=== PATIENT | male | born 1985 | race Caucasian/White ===

== ENCOUNTER 2021-10-03 08:03 | Outpatient (RCR) | payer OTHER, MEDICAID, MEDICARE, SELFPAY ==
--- NOTE | ~2021-10-03 | XR_ITS ---
EXAMINATION: CR X-RAY FOOT AND ANKLE LEFT CLINICAL INFORMATION: Left ankle and foot pain. COMPARISON: None TECHNIQUE: 3 views of the left foot and ankle were obtained. FINDINGS: The ankle joint and mortise are intact. There is no acute fracture or dislocation. Superficial soft tissue wounds are seen medially adjacent to the tibia. The tarsal bones are normally aligned. Deformity is seen in the distal aspect of the fifth metatarsal with ankylosis of the metatarsophalangeal joint. An adjacent superficial soft tissue wound with moderate soft tissue swelling is seen laterally. The remainder the digits are intact. Generalized mild soft tissue swelling. XR/XR ankle LT min 3V IMPRESSION: 1. Superficial soft tissue wounds in the ankle medially without acute underlying osseous abnormality. 2. Deformity in the distal fifth metatarsal does not appear acute and could be secondary to old fracture or healed osteomyelitis. Overlying soft tissue wound and swelling. Osteomyelitis cannot be excluded. MRI may be needed to better assess for acuity.
--- NOTE | ~2021-10-03 | XR_ITS ---
EXAMINATION: CR X-RAY FOOT AND ANKLE LEFT CLINICAL INFORMATION: Left ankle and foot pain. COMPARISON: None TECHNIQUE: 3 views of the left foot and ankle were obtained. FINDINGS: The ankle joint and mortise are intact. There is no acute fracture or dislocation. Superficial soft tissue wounds are seen medially adjacent to the tibia. The tarsal bones are normally aligned. Deformity is seen in the distal aspect of the fifth metatarsal with ankylosis of the metatarsophalangeal joint. An adjacent superficial soft tissue wound with moderate soft tissue swelling is seen laterally. The remainder the digits are intact. Generalized mild soft tissue swelling. XR/XR foot LT min 3V IMPRESSION: 1. Superficial soft tissue wounds in the ankle medially without acute underlying osseous abnormality. 2. Deformity in the distal fifth metatarsal does not appear acute and could be secondary to old fracture or healed osteomyelitis. Overlying soft tissue wound and swelling. Osteomyelitis cannot be excluded. MRI may be needed to better assess for acuity.
== END 2022-08-26 15:33 | disposition home or self-care (01) ==
LOC: HO.WCC 08:03
PROVIDERS: PCP Nurse Practitioner Family; Referring Provider Nurse Practitioner Family; Visit Provider Surgery
DX: L89.523 Pressure ulcer of left ankle, stage 3 (principal); L97.523 Non-pressure chronic ulcer of other part of left foot with necrosis of muscle; L93.0 Discoid lupus erythematosus; G90.09 Other idiopathic peripheral autonomic neuropathy; M21.6X2 Other acquired deformities of left foot; I73.9 Peripheral vascular disease, unspecified; I10 Essential (primary) hypertension; L90.5 Scar conditions and fibrosis of skin; F17.210 Nicotine dependence, cigarettes, uncomplicated
CPT/HCPCS: 11042; 73610; 73630; 87071; 87077; 87186; 87205; 99213

== ENCOUNTER → 2022-03-11 10:38 | Outpatient (BNVA) | payer OTHER, MEDICAID, SELFPAY | PROVIDERS: PCP Nurse Practitioner Family; Visit Provider Internal Medicine | DX: M86.9 Osteomyelitis, unspecified (principal); L97.529 Non-pressure chronic ulcer of other part of left foot with unspecified severity | CPT/HCPCS: 99202 ==

== ENCOUNTER → 2022-03-25 10:36 | Outpatient (BNVA) | payer OTHER, MEDICAID, SELFPAY | PROVIDERS: PCP Nurse Practitioner Family; Visit Provider Internal Medicine | DX: M86.9 Osteomyelitis, unspecified (principal) | CPT/HCPCS: 99212 ==

== ENCOUNTER 2024-04-04 02:14 | Emergency (ER) | payer MEDICARE, MEDICAID, SELFPAY ==
[2024-04-04 02:18] VITALS: BP 202/128; PULSE 108; RESP 16; TEMP 36.8; O2SAT 98; BMI 20.9
[2024-04-04 03:01] VITALS: BP 158/114; PULSE 88; RESP 17; TEMP 37.1; O2SAT 95
[2024-04-04 03:20] LABS: MANUAL DIFF FLAG NO
[2024-04-04 03:21] LABS: Basophils Percent Auto 0.4 % (0-2); Eosinophils Absolute Auto 0.2 X10*3/uL (0.0-0.4); Eosinophils Percent Auto 3.8 % (0-4); Hemoglobin 12.8 g/dl (14.0-18.0); Lymphocytes Absolute Auto 2.1 X10*3/uL (1.2-4.9); Lymphocytes Percent Auto 43.1 % (20-40); Mean Corpuscular HGB Conc 33.7 g/dl (31.0-36.0); Mean Corpuscular Hemoglobin 29.2 pg (27.0-33.0); Mean Corpuscular Volume 86.8 fL (80.0-98.0); Mean Platelet Volume 8.6 fL (9.4-12.4); Monocytes Absolute Auto 0.5 X10*3/uL (0.1-1.2); Monocytes Percent Auto 9.1 % (2-11); Neutrophils Absolute Auto 2.2 x10*3/uL (2.0-8.3); Neutrophils Percent Auto 43.6 % (45-73); Platelet Count 236 X10*3/uL (160-400); Red Blood Count 4.38 X10*6/uL (4.60-5.80); Red Cell Distribution Width 12.4 % (11.0-16.0); White Blood Count 4.9 X10*3/uL (4.8-10.8)
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
[2024-04-04 03:32] VITALS: BP 158/105
[2024-04-04] MEDS: amLODIPine Besylate 5 MG TABLET PO (03:32)
--- NOTE | 2024-04-04 03:32 | PC.NURSE ---
patient slightly hypertensive, has not been taking amlodipine at home. 5mg Amlodipine given here, aware
[2024-04-04 03:36] LABS: Alanine Aminotransferase 9 U/L (0-40); Albumin Level 4.1 g/dL (3.5-5.0); Alkaline Phosphatase 84 U/L (39-117); Anion Gap 13 (12-20); Aspartate Amino Transferase 15 U/L (5-37); Bilirubin Total 0.2 mg/dL (0.0-1.0); Blood Urea Nitrogen 23 mg/dL (9-16); Calcium 9.2 mg/dL (8.4-10.2); Carbon Dioxide 25 mmol/L (22-29); Chloride 106 mmol/L (96-108); Creatinine Clr Calc Pharmacy 104.1; Estimated Glomerular Filt Rate > 60; Glucose Random 102 mg/dL (60-115); Potassium 3.6 mmol/L (3.3-5.1); Sodium 140 mmol/L (135-145); Total Protein 7.1 g/dL (6.5-8.0)
[2024-04-04 03:41] VITALS: BP 158/105; PULSE 88; RESP 17; TEMP 37.1; O2SAT 95
== END 2024-04-04 03:51 | disposition home or self-care (01) ==
LOC: HO.ED 03:46
PROVIDERS: Emergency Provider Emergency Medicine
DX: S00.91XA Abrasion of unspecified part of head, initial encounter (principal); S00.83XA Contusion of other part of head, initial encounter; R51.9 Headache, unspecified; X58.XXXA Exposure to other specified factors, initial encounter; Y93.89 Activity, other specified; Y92.89 Other specified places as the place of occurrence of the external cause; Y99.8 Other external cause status
CPT/HCPCS: 36415; 80053; 85025; 99283; 99284

== ENCOUNTER 2025-03-01 20:28 | Inpatient (IN) | payer MEDICARE, MEDICAID, SELFPAY ==
--- NOTE | ~2025-03-01 | XR_ITS ---
CLINICAL HISTORY: infection to distal right pointer finger 3 view right 2nd digit Comparison: None Findings: No displaced fracture. No dislocation. No aggressive appearing osseous erosions by radiographs. Mild osteoarthritis includes imaged wrists. Mild relative truncation of the 1st and 4th metacarpals appear old/chronic and likely on a congenital basis. Soft tissue defect and/or blistering suggested of the distal soft tissues of the 2nd digit. Soft tissue swelling nonspecific. No radiopaque retained foreign body. IMPRESSION: 1. No acute fracture or aggressive osseous erosions. 2. Abnormal soft tissues of the likely distal defect of the 2nd digit. This document has been electronically signed by: Luis Foster MD on 03/01/2025 21:31:39
[2025-03-01 20:44] VITALS: BP 169/106; PULSE 113; RESP 17; TEMP 38.3; O2SAT 97; BMI 19.3
--- NOTE | 2025-03-01 20:49 | ED_ITS ---
HPI - General Adult General Chief complaint: Extremity Injury, Lower Stated complaint: rt index finger infection Time Seen by Provider: 03/01/25 21:32 Source: patient Mode of arrival: ambulatory Limitations: no limitations History of Present Illness ED Provider: Dr. Ericka Hicks HPI narrative: Patient comes to the emergency room complaining of right index pain an infection. According to the patient, 3 days ago, he noticed that he had swelling above the fingernail. Patient states that he attempted to drain it with a nail and squeeze the pus out. Patient states that he has done this multiple times. However, it keeps getting feel with pus. Patient states that now the pus is draining on the opposite side of the finger. Patient states that he has been having significant pain and is unable to bend the distal part of his finger now. Patient also complaining of a chronic ulcer on the left ankle. Patient states it has been about 5 years. Patient states that he has not followed up with wound care for more than 2 years. Patient states that he was not aware that he had a fever, on arrival temperature in triage was recorded as 100.9. Patient admits to past medical history of IV drug use, along with history of lupus and vasculitis Related Data Previous Rx's ?Medication ?Instructions ?Recorded levofloxacin 750 mg tablet 750 mg PO DAILY 42 days #42 tabs 03/11/22 Allergies Allergy/AdvReac Type Severity Reaction Status Date / Time Sulfa (Sulfonamide Allergy Unknown Unknown Verified 03/01/25 20:48 Antibiotics) Review of Systems 2 Review of Systems: Constitutional : No Weight loss, No Fever, No Chills, No Night Sweats, No Fatigue, No Malaise ENT/Mouth : No Hearing loss, No Ear Pain, No Nasal Congestion, No Sinus Pain, No Hoarseness, No sore throat, No Rhinorrhea, No Swallowing Difficulty Eyes: No Eye Pain, No Swelling, No Redness, No Foreign Body, No Discharge, No Vision Changes Cardiovascular : No Chest Pain, No SOB, No Dyspnea on Exertion, No Orthopnea, No Edema, No Palpitations Respiratory : No Cough, No Sputum, No Wheezing, No Smoke Exposure, No Dyspnea Gastrointestinal : No Nausea, No Vomiting, No Diarrhea, No Constipation, No abdominal Pain, No Hematochezia, No Melena Genitourinary : no irregular bleeding, No Dysuria, No Urinary Frequency, No Hematuria, No Urinary Incontinence, No Urgency, No Flank Pain, No Urinary Flow Changes, No Hesitancy Musculoskeletal : No joint pain, No Myalgias, No Joint Swelling Skin : Complaining of pus drainage in the dorsal and palmar aspect of the right index finger, complaining of a chronic ulcer on the left ankle Neuro : No Weakness, No Numbness, No Paresthesias, No Loss of Consciousness, No Dizziness, No Headache Psych : No Anxiety/Panic, No Depression, No SI/HI/AH/VH, No Social Issues, Heme/Lymph: No Bruising, No Bleeding,No Lymphadenopathy Endocrine : No Polyuria, No Polydipsia, No Temperature Intolerance [facility] Past Medical History Medical History IV drug user Vasculitis Lupus (systemic lupus erythematosus) Osteomyelitis Social History Social History Substance Use Type: Heroin Physical Exam ED Exam Exam: Appearance: Alert. Oriented X3. No acute distress. Eyes: Pupils equal, round and reactive to light. ENT: Pharynx normal. Neck: Normal inspection. Neck supple. No lymph nodes noted. No crepitus CVS: Normal heart rate and rhythm. Pulses normal. Normal S1 and S2 Respiratory: No respiratory distress. Breath sounds normal. No Wheezing. No rales Abdomen: Soft and nontender. No rigidity. No distention. Skin: Skin warm and dry. See extremities below Extremities: No lower extremity edema. On patient's right index finger, there is a puncture wound to the dorsal aspect, paronychia present, draining pus, there is also a pus on the dorsal aspect of the right index finger, likely there is a fistula. Patient unable to flex the DIP. In the left ankle on the medial aspect, there is a chronic ulcer. See pictures below Neuro: Oriented X 3. No motor deficit. No sensory deficit. Moving all extremities. No slurred speech. CN 2 through 12 grossly intact Psych: calm, cooperative, normal affect Vital Signs: Vital Signs - 24 hr 03/01/25 20:44 03/01/25 21:40 03/01/25 21:54 Temperature 100.9 F H 99.5 F Pulse Rate 113 H 100 Respiratory Rate 17 16 Blood Pressure 169/106 H 161/104 H 161/104 H Pulse Oximetry 97 97 Oxygen Delivery Method Room Air Room Air BMI result Body Mass Index 19.3 Course Course Course Narrative: This is a Rapid Medical Examination (RME) performed by Parisa Sneed PA-C in triage. Full HPI, ROS, assessment and treatment plan per primary provider in the Main ED. Hx: 40 yo M here for eval of swelling/ pain to R second digit upon waking this morning. no recent injury/trauma. attempted to tj the finger himself at home - yellow/white drainage noted. PE/vitals: tachycardic +febirle - tylenol given in triage. hypertensive - not compliant w/ HTN meds x2 days. noted swelling to entire right 2nd digit with noted blister to distal aspect. unable to flex at right 2nd DIP. sausage digit. Plan: labs, lactic, BC, xr Medications Administered Generic Name Dose Route Start Last Admin Trade Name Freq PRN Reason Stop Dose Admin Piperacillin Sod/Tazobactam 50 mls @ 100 mls/hr 03/01/25 21:44 03/01/25 21:53 Sod 3.375 gm/ Sodium Chloride IV 03/01/25 22:13 100 mls/hr ONCE ONE Administration Discontinued Medications Generic Name Dose Route Start Last Admin Trade Name Freq PRN Reason Stop Dose Admin Acetaminophen 975 mg 03/01/25 20:48 03/01/25 20:50 Acetaminophen 325 Mg Tablet PO 03/01/25 20:49 975 mg ONCE ONE Administration Amlodipine Besylate 10 mg 03/01/25 21:44 03/01/25 21:54 Amlodipine Besylate 10 Mg Tablet PO 03/01/25 21:45 10 mg ONCE ONE Administration Protocol Medical Decision Making Medical Decision Making [facility] Narrative: My interpretation of labs, patient's white blood cell count 4.6, no significant chemistry abnormality, lactic acid normal Patient's blood pressure is elevated, given 10 mg of amlodipine Patient is empirically being treated with IV antibiotics, fluids, patient does have a bit of a fever. No hypotension, normal lactic acid. sepsis not suspected I discussed the patient with Dr. Duenas, patient being admitted Patient agrees with plan Differential Diagnosis Differential Diagnoses: The differential diagnosis associated with the presentation includes (Cellulitis, paronychia, fistula, chronic wound, osteomyelitis) Admission/Observation Consideration of admission/observation: Escalation of care including admission/observation considered Consult Healthcare Provider Management of the patient was discussed with: Hospitalist Lab Data [facility] Lab Attestation statement: I reviewed the patient's lab results. 03/01/25 21:08 03/01/25 21:08 Labs: Lab Results 03/01/25 Range/Units 21:08 WBC 4.6 L (4.8-10.8) X10*3/uL RBC 3.87 L (4.60-5.80) X10*6/uL Hgb 10.7 L (14.0-18.0) g/dl Hct 31.7 L (42.0-52.0) % MCV 81.9 (80.0-98.0) fL MCH 27.6 (27.0-33.0) pg MCHC 33.8 (31.0-36.0) g/dl RDW 14.1 (11.0-16.0) % Plt Count 241 (160-400) X10*3/uL MPV 9.0 L (9.4-12.4) fL Immature Gran % (Auto) 0.2 (0.0-0.4) % Neut % (Auto) 66.3 (45-73) % Lymph % (Auto) 25.7 (20-40) % [place] % (Auto) 6.1 (2-11) % Eos % (Auto) 1.5 (0-4) % Baso % (Auto) 0.2 (0-2) % Lymph # (Auto) 1.2 (1.2-4.9) X10*3/uL [place] # (Auto) 0.3 (0.1-1.2) X10*3/uL Eos # (Auto) 0.1 (0.0-0.4) X10*3/uL Baso # (Auto) 0.0 (0.0-0.2) X10*3/uL Abs Immat Gran (auto) 0.01 (0.00-0.03) X10*3/uL Absolute Neuts (auto) 3.0 (2.0-8.3) x10*3/uL Absolute Nucleated RBC 0.000 (0.0-0.012) X10*3/uL Nucleated RBC % (auto) 0.0 (0.0-0.2) /100WBC Sodium 136 (135-145) mmol/L Potassium 3.7 (3.3-5.1) mmol/L Chloride 100 (96-108) mmol/L Carbon Dioxide 26 (22-29) mmol/L Anion Gap 14 (12-20) BUN 19 H (9-16) mg/dL Creatinine 1.19 (0.5-1.4) mg/dL Estim Creat Clear Calc 76.6 Estimated GFR > 60 Random Glucose 93 (60-115) mg/dL Lactic Acid 0.8 (0.5-2.0) mmol/L Calcium 8.5 D (8.4-10.2) mg/dL Total Bilirubin 0.2 (0.0-1.0) mg/dL AST 31 (5-37) U/L ALT 17 (0-40) U/L Alkaline Phosphatase 82 (39-117) U/L Total Protein 7.3 (6.5-8.0) g/dL Albumin 3.7 (3.5-5.0) g/dL Independent Interpretation I performed an independent interpretation of an: Plain X-Ray Radiology Impression Discussion of test interpretation with radiology: I have reviewed the radiologist's reading. Radiologist Impression: No displaced fracture. No dislocation. No aggressive appearing osseous erosions by radiographs. Mild osteoarthritis includes imaged wrists. Mild relative truncation of the 1st and 4th metacarpals appear old/chronic and likely on a congenital basis. Soft tissue defect and/or blistering suggested of the distal soft tissues of the 2nd digit. Soft tissue swelling nonspecific. No radiopaque retained foreign body. IMPRESSION: 1. No acute fracture or aggressive osseous erosions. 2. Abnormal soft tissues of the likely distal defect of the 2nd digit. Critical Care Time Critical Care Time Critical Care Time: Yes Total Critical Care Time: 60 Attestation: I have personally provided critical care time. Time includes review of lab data, radiology results, discussion with consultants, and monitoring for potential decompensation. Intervention performed as documented. Discharge Plan Discharge Clinical Impression: Cellulitis, Chronic wound, Hypertension, At risk for medication noncompliance Patient Disposition: Admitted As Inpatient Print Language: Irish
--- NOTE | 2025-03-01 20:51 | PC.NURSE ---
pt medicated in triage d/t fever. effectiveness pending. possible sepsis - chargeback analyst, Neda, notified/aware.
[2025-03-01 21:15] LABS: MANUAL DIFF FLAG NO
[2025-03-01 21:18] LABS: Hematocrit 31.7 % (42.0-52.0); Hemoglobin 10.7 g/dl (14.0-18.0); Imm Gran Abs Auto 0.01 X10*3/uL (0.00-0.03); Imm Gran Pct Auto 0.2 % (0.0-0.4); Lymphocytes Absolute Auto 1.2 X10*3/uL (1.2-4.9); Mean Corpuscular HGB Conc 33.8 g/dl (31.0-36.0); Mean Corpuscular Hemoglobin 27.6 pg (27.0-33.0); Mean Corpuscular Volume 81.9 fL (80.0-98.0); NRBC Abs Auto 0.000 X10*3/uL (0.0-0.012); NRBC Pct Auto 0.0 /100WBC (0.0-0.2); Platelet Count 241 X10*3/uL (160-400); Red Blood Count 3.87 X10*6/uL (4.60-5.80); White Blood Count 4.6 X10*3/uL (4.8-10.8)
[2025-03-01 21:37] LABS: Alanine Aminotransferase 17 U/L (0-40); Albumin Level 3.7 g/dL (3.5-5.0); Alkaline Phosphatase 82 U/L (39-117); Anion Gap 14 (12-20); Aspartate Amino Transferase 31 U/L (5-37); Blood Urea Nitrogen 19 mg/dL (9-16); Calcium 8.5 mg/dL (8.4-10.2); Carbon Dioxide 26 mmol/L (22-29); Chloride 100 mmol/L (96-108); Creatinine Clr Calc Pharmacy 76.6; Estimated Glomerular Filt Rate > 60; Potassium 3.7 mmol/L (3.3-5.1); Sodium 136 mmol/L (135-145); Total Protein 7.3 g/dL (6.5-8.0)
[2025-03-01 21:40] VITALS: BP 161/104; PULSE 100; RESP 16; TEMP 37.5; O2SAT 97
--- NOTE | 2025-03-01 21:43 | PC.NURSE ---
pt comes in from waiting room, finger wound that started without injury, red and swollen, pt punctured it a day ago to see if he could relieve some pressure and puss, reports blood and yellow discharge. Pain increased, swelling and redness after this. pain with touch to finger. provider Dr Hicks at bedside.
[2025-03-01 21:54] VITALS: BP 161/104
--- NOTE | 2025-03-01 21:58 | PC.NURSE ---
pt medicated per MAR.
--- NOTE | 2025-03-01 22:00 | PC.NURSE ---
tylenol given in triage, duplicate dose ordered and not given.
[2025-03-01 22:09] VITALS: BP 145/101; PULSE 92; RESP 16; O2SAT 97
--- NOTE | 2025-03-01 22:09 | PM.IMHP ---
History of Present Illness Date of Service: 03/01/25 Chief Complaint: finger infection This has a 40-year-old male with pertinent history of SLE, vasculitis, hypertension, polysubstance IV drug use disorder who is noncompliant with home medications presents to the emergency department for concerns of finger infection. Patient states he noticed infection below the right index finger nail 3 days prior to presentation. No inciting factor. There was associated swelling, redness and warmth. Patient tried to self drain the infection multiple times using a needle. He subsequently noticed purulent foul-smelling drainage from the volar surface of the finger. Patient has significant pain and is unable to flex the distal part of his right index finger due to pain. Has associated fever. No chills, nausea, vomiting, chest pain, palpitations, shortness of breath, abdominal pain, changes in urinary or bowel habits. Patient admits that he has not been compliant with his home prescription medications as he is in the middle of moving. Denies recent IV drug use. In the emergency department, patient was found to be septic and given empiric IV antibiotics. Review of Systems Constitutional: Constitutional: Reports fever(s) Cardiovascular: Cardiovascular: Reports no additional cardiovascular complaints Respiratory: Respiratory: Reports no additional respiratory complaints Gastrointestinal: Gastrointestinal: Reports no additional gastrointestinal complaints Genitourinary: Genitourinary: Reports no additional male genitourinary complaints Musculoskeletal: Musculoskeletal: Reports arthralgias and Reports joint swelling [facility] Medical History IV drug user Vasculitis Lupus (systemic lupus erythematosus) Osteomyelitis Social History Patient Tobacco Use Status: Current everyday Tobacco user Substance Use Type: Heroin Meds Allergies Allergy/AdvReac Type Severity Reaction Status Date / Time Sulfa (Sulfonamide Allergy Unknown Unknown Verified 03/01/25 20:48 Antibiotics) Active Medications: Current Medications Vancomycin HCl 1,500 mg/ (Sodium Chloride) 500 mls @ 333.333 mls/hr IV ONCE ONE Stop: 03/01/25 23:13 Piperacillin Sod/Tazobactam (Sod 3.375 gm/ Sodium Chloride) 50 mls @ 100 mls/hr IV ONCE ONE Stop: 03/01/25 22:13 Last Admin: 03/01/25 21:53 Dose: 100 mls/hr Sodium Chloride (Ns) 1,000 mls @ 999 mls/hr IVCONT .Q1H1M ONE Stop: 03/01/25 23:03 Physical Exam Vital Signs and Narrative: Vital Signs: Last Vital Signs Temp 99.5 F 03/01/25 21:40 Pulse 100 03/01/25 21:40 Resp 16 03/01/25 21:40 BP 161/104 H 03/01/25 21:54 Pulse Ox 97 03/01/25 21:40 O2 Del Method Room Air 03/01/25 21:40 BMI result Body Mass Index 19.3 Const: Other: Middle-aged male lying in bed in no distress Neck supple, no JVD Regular rate and rhythm, S1-S2 heard Regular breath sounds bilaterally, no wheezing or crackles appreciated Abdomen soft nontender, no guarding, no rigidity Patient is awake, alert and oriented to self, place, time and person ; no focal motor deficit Psych: Normal mood Right index finger with puncture wound draining pus and surrounding erythema, warmth and swelling on the volar aspect, also paronychia seen ; unable to flex DIP due to pain (as pictured below) Chronic ulcer in the medial aspect of left ankle without drainage (as pictured below) Skin: Other: Results Labs 03/01/25 21:08 03/01/25 21:08 Labs: Laboratory Results - last 24 hr 03/01/25 21:08 MCV 81.9 MCH 27.6 MCHC 33.8 RDW 14.1 Plt Count 241 MPV 9.0 L Immature Gran % (Auto) 0.2 Neut % (Auto) 66.3 Lymph % (Auto) 25.7 [place] % (Auto) 6.1 Eos % (Auto) 1.5 Baso % (Auto) 0.2 Lymph # (Auto) 1.2 [place] # (Auto) 0.3 Eos # (Auto) 0.1 Baso # (Auto) 0.0 Abs Immat Gran (auto) 0.01 Absolute Neuts (auto) 3.0 Absolute Nucleated RBC 0.000 Nucleated RBC % (auto) 0.0 Anion Gap 14 Estim Creat Clear Calc 76.6 Estimated GFR > 60 Random Glucose 93 Lactic Acid 0.8 Calcium 8.5 D Total Bilirubin 0.2 AST 31 ALT 17 Alkaline Phosphatase 82 Total Protein 7.3 Albumin 3.7 Assessment and Plan (1) Cellulitis: Status: Acute Plan This has a 40-year-old male with pertinent history of SLE, vasculitis, hypertension who is noncompliant with home medications presents to the emergency department for concerns of finger infection. #. Sepsis due right index finger cellulitis with paronychia and ?underlying abscess: Resuscitated with IV crystalloids. Will admit patient with empiric IV antibiotics. Lactic acid and blood culture obtained. Consulted Orthopedic surgery, appreciate assistance. Obtaining CT to delineate underlying anatomy #. Normocytic anemia: Hemoglobin above transfusion threshold #. Hypertension: Patient is not compliant with home antihypertensives. Resume once med rec is complete #. SLE: Not compliant with home prescription medications #. Chronic venous ulcer: Wound care Med rec pending DVT: Defer Lovenox until orthopedic evaluation Full code Admit as inpatient and will require two night minimum hospital stay for IV antibiotics (as above), which is not possible in a lesser acute setting. Specialist consult pending Quality Stroke Does the patient have a stroke diagnosis?: No VTE Prior VTE?: No VTE Risk Level:: Medical - low VTE Device Contraindication: Treatment Not Indicated VTE Drug Contraindication: Treatment Not Indicated
--- NOTE | 2025-03-01 22:30 | PC.NURSE ---
pt medicated per MAR.
--- NOTE | 2025-03-01 23:31 | PC.NURSE ---
pt admits to hx of IV drug use, [facility] states safety check not mandated as pt isn't showing signs of intoxication or probable cause for a search , dev technical mgr aware.
--- NOTE | 2025-03-01 23:36 | PC.NURSE ---
pt ambulated to bathroom, infusion stopped at 2330, resumed at 4
[2025-03-02] VITALS (10 sets, daily range): BP systolic 119–178; BP diastolic 68–112; PULSE 76–88; RESP 14–18; TEMP 36.7–37.7; O2SAT 96–98
[2025-03-02 05:13] LABS: MANUAL DIFF FLAG NO
[2025-03-02 05:15] LABS: Hematocrit 33.8 % (42.0-52.0); Hemoglobin 10.8 g/dl (14.0-18.0); Imm Gran Abs Auto 0.00 X10*3/uL (0.00-0.03); Imm Gran Pct Auto 0.0 % (0.0-0.4); Lymphocytes Absolute Auto 1.5 X10*3/uL (1.2-4.9); Mean Corpuscular HGB Conc 32.0 g/dl (31.0-36.0); Mean Corpuscular Hemoglobin 26.9 pg (27.0-33.0); Mean Corpuscular Volume 84.1 fL (80.0-98.0); NRBC Abs Auto 0.000 X10*3/uL (0.0-0.012); NRBC Pct Auto 0.0 /100WBC (0.0-0.2); Platelet Count 240 X10*3/uL (160-400); Red Blood Count 4.02 X10*6/uL (4.60-5.80); White Blood Count 3.6 X10*3/uL (4.8-10.8)
[2025-03-02 05:38] LABS: Anion Gap 9 (12-20); Blood Urea Nitrogen 14 mg/dL (9-16); Calcium 8.3 mg/dL (8.4-10.2); Carbon Dioxide 26 mmol/L (22-29); Chloride 107 mmol/L (96-108); Creatinine Clr Calc Pharmacy 96.0; Estimated Glomerular Filt Rate > 60; Potassium 3.2 mmol/L (3.3-5.1); Sodium 139 mmol/L (135-145)
--- NOTE | 2025-03-02 07:54 | P.CONOP_ITS ---
History of Present Illness HPI Consult date: 03/02/25 Chief complaint: rt index finger infection Narrative: Patient is a 40-year-old male with past medical history significant for IV drug use, vasculitis, SLE, hypertension noncompliant with meds and osteomyelitis who presents to the hospital for a an approximately 3 day history of redness and swelling in the tip of the right index finger Patient reports that this redness and swelling started approximately 3 days ago, began at the site of the nail Patient reports that this redness and swelling has moved into the pad of the right index finger Patient reports that multiple times he has attempted to tj this with a needle at home Patient does report that there are 2 sites that are actively draining, and then he feels his pain has improved since this started Patient reports significant discomfort at the tip of the right index finger, particularly in the pad Reports Limited range of motion of the DIP joint No other acute complaints or concerns at this time Of note, patient does have a significant chronic wound of the left ankle Review of Systems 2 Review of Systems: Yes all other systems are reviewed and are negative PMFSH Past Medical History Medical History IV drug user Vasculitis Lupus (systemic lupus erythematosus) Osteomyelitis Social History Social History Patient Tobacco Use Status: Current everyday Tobacco user Smoked in Last 30 Days: Yes Use of substances other than those prescribed or required for medical reasons: Yes Substance Use Type: Heroin Advance Directives: No Advance Directives Information Provided: Yes Do you have a plan to hurt others: No Plan Meds Allergies Allergy/AdvReac Type Severity Reaction Status Date / Time Sulfa (Sulfonamide Allergy Unknown Unknown Verified 03/01/25 20:48 Antibiotics) Active Medications: Current Medications Acetaminophen (Acetaminophen 325 Mg Tablet) 650 mg PO Q6H PRN PRN Reason: Pain, Mild 1-3,fever,headache Calcium Carbonate (Calcium Carbonate 750 Mg Tab.Chew) 750 mg PO Q4H PRN PRN Reason: Heartburn Vancomycin HCl 1,000 mg/ (Sodium Chloride) 270 mls @ 270 mls/hr IV Q12H [facility] Lidocaine HCl 8.11 ml/Epinephrine 0.08 mg/ Sodium Bicarbonate 0.405 meq/ IV Miscellaneous Supplies 9 mls @ 0 mls/hr INFILTRATI ONCE ONE Stop: 03/02/25 07:54 Magnesium Hydroxide (Milk Of Magnesia 30 Ml Oral.Susp) 30 ml PO DAILY PRN PRN Reason: Constipation Melatonin (Melatonin 3 Mg Tablet) 6 mg PO BEDTIME PRN PRN Reason: Insomnia Ondansetron HCl (Ondansetron Hcl 4 Mg/2 Ml Vial) 4 mg IVPUSH Q8H PRN PRN Reason: Nausea and Vomiting Pharmacy Consult (Consult Rx Vancomycin Dosing) 1 each MISCELLANE DAILY PRN PRN Reason: Consult order Sodium Chloride (0.9 % Sodium Chloride Flush 3 Ml Syringe) [facility] Last Admin: 03/02/25 00:11 Dose: Not Given Home Medications ?Medication ?Instructions ?Recorded ?Confirmed ?Last Taken ?Type buprenorphine 300 mg/1.5 mL 300 mg subcut QMONTH 03/02 Unknown History solution,exten.rel.subcutaneous syringe (Sublocade) buprenorphine 8 mg-naloxone 2 mg 1 film sublingual SHARIFA LY 03/02/25 Unknown History sublingual film clonidine HCl 0.1 mg tablet 0.1 mg PO TID PRN Anxiety 03/02/25 Unknown History gabapentin 600 mg tablet 600 mg PO TID 03/02/25 Unkn own History Physical Exam 2 Vital Signs: Vital Signs: Last Vital Signs Temp 99.5 F 03/02/25 06:40 Pulse 88 03/02/25 06:40 Resp 16 03/02/25 06:40 BP 159/112 H 03/02/25 06:40 Pulse Ox 98 03/02/25 06:40 O2 Del Method Room Air 03/02/25 06:40 BMI result Body Mass Index 19.3 Extrem: Other: Patient is alert, oriented, and in no acute distress. Neuro: Normal sensation of the tips of all digits of the right hand at this time Vascular: Cap refill brisk Pain: Significant tenderness to palpation of the distal aspect of the right index finger Pain with attempted range of motion of the DIP joint of the right index finger ROM: Limited range of motion noted of the DIP joint of the right index finger secondary to pain Patient is able to flex and extend all other digits of the right hand fully and without difficulty General: Erythema noted diffusely throughout the distal phalanx of the right index finger There is noted to be some slight purulent drainage of 2 puncture sites of the distal aspect of the right index finger, 1 adjacent to the nail and 1 on the pad of the finger Psych: Appears grossly normal Affect normal Attitude cooperative Results Labs 03/02/25 04:55 03/02/25 04:55 Labs: Abnormal lab results 03/01/25 03/02/25 Range/Units 21:08 04:55 WBC 4.6 L 3.6 L (4.8-10.8) X10*3/uL RBC 3.87 L 4.02 L (4.60-5.80) X10*6/uL Hgb 10.7 L 10.8 L (14.0-18.0) g/dl Hct 31.7 L 33.8 L (42.0-52.0) % MCH 26.9 L (27.0-33.0) pg MPV 9.0 L 9.1 L (9.4-12.4) fL Neut % (Auto) 43.3 L (45-73) % Lymph % (Auto) 41.4 H (20-40) % Eos % (Auto) 4.7 H (0-4) % Absolute Neuts (auto) 1.6 L (2.0-8.3) x10*3/uL Potassium 3.2 L (3.3-5.1) mmol/L Anion Gap 9 L (12-20) BUN 19 H (9-16) mg/dL Calcium 8.3 L (8.4-10.2) mg/dL H & H 03/01/25 03/02/25 Range/Units 21:08 04:55 Hgb 10.7 L 10.8 L (14.0-18.0) g/dl Hct 31.7 L 33.8 L (42.0-52.0) % All other labs normal. Assessment and Plan (1) Paronychia of right index finger: Status: Acute (2) Felon of finger of right hand: Status: Acute Plan 1. Paronychia and felon of right index finger Date of onset approximately 3 days ago I educated the patient about the condition. I discussed both operative and nonoperative treatment options. The patient would like to proceed with surgery. The risks and benefits of operative treatment were discussed with the patient and the patient wishes to proceed with surgery. These risks include, but are not limited to, risk of damage to blood vessels, nerves, tendons, infection, recurrence, incomplete relief of preoperative symptoms, persistent pain, possible need for further surgery, and the risks associated with regional blocks and/or anesthesia. Plan is to take the patient to the operating room on 03/02/2025 for the following procedures: 1. I and D of right index finger under local anesthesia Patient does not need to be NPO, as procedure will be done under local Will require IV antibiotics after surgery, we will be transferred to the floor accordingly Continue with all other recommendations per the ED and medicine Procedures Date of Service Date of Service: 03/02/25
--- NOTE | 2025-03-02 08:39 | PHA.MEDREC ---
Pharmacy Consult ? Medication Reconciliation Pharmacy has completed the medication reconciliation. Spoke to patient to confirm medication list. Per patient, his last dose of sublocade was on around 01/29/25, next dose is scheduled for 03/06/25. He is taking gabapentin but hasn't taken it in about a week due to running out of med and hasn't picked up the refill from pharmacy yet. He said he is taking suboxone films but only as needed due to being on sublocade (doesn't remember last dose).
[2025-03-02] MEDS: BUPivacaine MPF 0.5 % 10 ML VIAL SUBCUT (09:29)
--- NOTE | 2025-03-02 09:42 | MHC.SHP ---
Pre-Procedural Eval Section A - 24 Hr Update-Section A only Date of Service: 03/02/25 The patient is an INPATIENT: Yes Changes since office visit: No Cold of Flu in the past 2 weeks, No New Medical Problems, No Changes in Medication and No Patient answered all questions The patient has been examined within 24 hours of the surgical procedure. The History & Physical has been completed within 30 days and I have reviewed it.: Yes Section B - Complete if H&P > 30 days Chief Complaint: rt index finger infection Allergies: Allergies Allergy/AdvReac Type Severity Reaction Status Date / Time Sulfa (Sulfonamide Allergy Unknown Rash Verified 03/02/25 08:39 Antibiotics) Exam Exam Comment: Patient is seen by me in preop hold. He has a right index finger paronychia and felon. No tenderness in the flexor tendon sheath proximal to the PIP joint. Minimal tenderness to palpation proximal to the D IP joint Good active flexion and extension of the digit at the MCP and PIP joints Plan I have reviewed the history and physical and performed a pertinent physical examination on my patient. No changes have occurred unless specified. Assessment and plan: 1. Right index finger paronychia and felon I educated the patient about this condition we discussed operative and non operative treatment options. I am recommending surgery in the patient agrees. The risks and benefits of operative treatment were discussed with the patient and the patient wishes to proceed with surgery. These risks include, but are not limited to risk of damage to blood vessels, nerves, tendons, infection, recurrence, incomplete relief of preoperative symptoms, persistent pain, possible need for further surgery and the risks associated with regional blocks and anesthesia. The plan is to take the patient to the operating room today for the following procedures: 1. Right index finger I and D 2. [ ] All of the preoperative paperwork including the consent was filled out today. All the patient's questions were answered. Time Spent With Patient Time: Total time managing care of this patient today ____ minutes.
--- NOTE | 2025-03-02 09:44 | W.PM.OPN ---
Operative Note Operative Note Date of Service: 03/02/25 Narrative: Operative Note Preop diagnosis: 1. Right index finger felon 2. Right index finger paronychial infection Postop diagnosis: same Procedure: 1. Right index finger I and D of felon and paronychia infection Surgeon: Gypsy Campos MD Blueprint Machine Operator: Guerrero CABALLERO Anesthesia: digital block using 1% lidocaine with epinephrine Findings: Creamy yellow Purulence coming from beneath the radial eponychial fold and within the pad. EBL: Less than 5 mL Tourniquet time: None Specimens: Cultures taken of purulence Complications: None Disposition: Brought to recovery room in stable condition Plan: Admit back to the floor for IV antibiotics. Check cultures and adjust antibiotics accordingly Follow-up for 7-10 days for wound check and suture removal and to check pathology Indications: The patient is 40 years old, with an IV drug use history and a right index finger felon and paronychial infection . The risks and benefits of operative treatment including but not limited to risk of damage to blood vessels, nerves, tendons, infection, persistent pain, persistent symptoms, recurrence or possible need for additional surgery were discussed with the patient and the patient wishes to proceed with surgery. Procedure: Once consent was obtained a digital block was performed in the preop area using a combination of 0.5% plain Marcaine. The patient was then brought back to the operating suite and placed on the operative table in supine position. The right upper extremity was prepped and draped in a standard surgical fashion. Once assured that we had a good block, it took a [place] elevator and passed it under the radial eponychial fold. We had some creamy yellow purulence in this area. I then took a 15. Blade and made a 8 mm incision extending from the wound that the patient made at the tip of the finger proximally at the apex of the abscess. The incision was made through the skin into the subcutaneous tissue. I then took some iris scissors and opened up the septic in the pad of the finger down to the distal phalanx. There was a significant amount of creamy yellow purulence in the pad of the finger. This was all expressed. I then copiously irrigated both wounds with normal saline using a 10 mL syringe and an Angiocath. Once satisfied with our I&D the wound was copiously irrigated with normal saline and hemostasis was obtained with a brief period of local pressure. No sutures were placed, and I placed a sterile dressing. The patient appears to have tolerated the procedure well and with no complications. All digits were well vascularized at the conclusion of the case.
--- NOTE | 2025-03-02 09:54 | PC.NURSE ---
called pharmacy for potassium that was just recently ordered by [facility] hospitalists. patient off unto for procedure under local sedation. potassium to be brought down for or or pacu nurse to hang the first dose.
[2025-03-02] MEDS: Potassium Chloride/H20 10 MEQ/100 ML PIGGYBACK 100 MEQ IV ×2 (10:33→11:38)
[2025-03-02] MEDS: 0.9 % Sodium Chloride Flush 3 ML SYRINGE IVFLUSH ×2 (16:57→20:19)
--- NOTE | 2025-03-02 17:14 | HO.PM.IMPN ---
Subjective Subjective Date of Service: 03/02/25 Interval History: Sepsis due right index finger cellulitis Review of Systems Patient had mild finger pain, went for surgery today. Review of Systems: Yes all other systems are reviewed and are negative Physical Exam Exam: Exam: Appearance: Alert.? Oriented X3.? . cvs: rrr, [id number] . res: clear to auscultation ,no rhonchii or wheezing abd: no rebound or guarding ,nt, bs present. skin:(per ortho documentation)Erythema noted diffusely throughout the distal phalanx of the right index finger There is noted to be some slight purulent drainage of 2 puncture sites of the distal aspect of the right index finger. ext pulses present , no cyanosis . neuro: axo3 , nonfocal. Vital Signs: Vital Signs: Last Vital Signs Temp 98.0 F 03/02/25 14:57 Pulse 76 03/02/25 14:57 Resp 18 03/02/25 14:57 BP 145/96 H 03/02/25 15:16 Pulse Ox 98 03/02/25 14:57 O2 Del Method Room Air 03/02/25 14:57 BMI result Body Mass Index 19.3 Objective Data Active Medications Acetaminophen (Acetaminophen 325 Mg Tablet) 650 mg PO Q6H PRN PRN Reason: Pain, Mild 1-3,fever,headache Buprenorphine/Naloxone (Buprenorphine/Naloxone 8/2 Mg Film) 1 film SUBLINGUAL DAILY [facility] Last Admin: 03/02/25 11:45 Dose: Not Given Documented By: KENNETH Non-Admin Reason: Patient Refused Calcium Carbonate (Calcium Carbonate 750 Mg Tab.Chew) 750 mg PO Q4H PRN PRN Reason: Heartburn Gabapentin (Gabapentin 600 Mg Tablet) 600 mg PO TID [facility] Last Admin: 03/02/25 15:06 Dose: Not Given Documented By: CHERELLE Non-Admin Reason: Patient Asleep Vancomycin HCl 1,000 mg/ (Sodium Chloride) 270 mls @ 270 mls/hr IV Q12H [facility] Last Infusion: 03/02/25 15:04 Dose: Infused Documented By: CHERELLE Magnesium Hydroxide (Milk Of Magnesia 30 Ml Oral.Susp) 30 ml PO DAILY PRN PRN Reason: Constipation Melatonin (Melatonin 3 Mg Tablet) 6 mg PO BEDTIME PRN PRN Reason: Insomnia Non-Formulary Medication (Buprenorphine [Sublocade]) 300 mg SUBCUT Q30D [facility] Ondansetron HCl (Ondansetron Hcl 4 Mg/2 Ml Vial) 4 mg IVPUSH Q8H PRN PRN Reason: Nausea and Vomiting Pharmacy Consult (Consult Rx Vancomycin Dosing) 1 each MISCELLANE DAILY PRN PRN Reason: Consult order Sodium Chloride (0.9 % Sodium Chloride Flush 3 Ml Syringe) 3 ml IVFLUSH QSHIFT [facility] Last Admin: 03/02/25 16:57 Dose: 3 ml Documented By: CHERELLE Labs 03/02/25 04:55 03/02/25 04:55 Labs: Laboratory Results - last 24 hr 03/01/25 03/02/25 21:08 04:55 MCV 81.9 84.1 MCH 27.6 26.9 L MCHC 33.8 32.0 RDW 14.1 14.0 Plt Count 241 240 MPV 9.0 L 9.1 L Immature Gran % (Auto) 0.2 0.0 Neut % (Auto) 66.3 43.3 L Lymph % (Auto) 25.7 41.4 H Howell % (Auto) 6.1 10.3 Eos % (Auto) 1.5 4.7 H Baso % (Auto) 0.2 0.3 Lymph # (Auto) 1.2 1.5 Howell # (Auto) 0.3 0.4 Eos # (Auto) 0.1 0.2 Baso # (Auto) 0.0 0.0 Abs Immat Gran (auto) 0.01 0.00 Absolute Neuts (auto) 3.0 1.6 L Absolute Nucleated RBC 0.000 0.000 Nucleated RBC % (auto) 0.0 0.0 Anion Gap 14 9 L Estim Creat Clear Calc 76.6 96.0 Estimated GFR > 60 > 60 Random Glucose 93 98 Lactic Acid 0.8 Calcium 8.5 D 8.3 L Total Bilirubin 0.2 AST 31 ALT 17 Alkaline Phosphatase 82 Total Protein 7.3 Albumin 3.7 Microbiology Microbiology Results: Microbiology 03/02/25 10:11 Gram Stain - Final Finger Right Index Assessment and Plan (1) Paronychia of right index finger: Status: Acute Assessment and Plan: 40-year-old male with pertinent history of SLE, vasculitis, hypertension who is noncompliant with home medications presents to the emergency department for concerns of finger infection. Sepsis due right index finger cellulitis with paronychia and ?underlying abscess: Consulted Orthopedic surgery-s/p Right index finger I and D of felon and paronychia infection,continue Resuscitated with IV crystalloids, empiric IV antibiotics. Lactic acid normal and blood culture pending . ID eval. Normocytic anemia: Hemoglobin above transfusion threshold Hypertension: Patient is not compliant with home antihypertensives. Resume once med rec is complete SLE: Not compliant with home prescription medications Chronic venous ulcer: Wound care DVT: Defer Lovenox until orthopedic evaluation Full code Admit as inpatient and will require two night minimum hospital stay for IV antibiotics (as above), which is not possible in a lesser acute setting. Specialist consult pendin Quality Stroke Does the patient have a stroke diagnosis?: No VTE Prior VTE?: No VTE Risk Level:: Medical - low VTE Device Contraindication: Treatment Not Indicated VTE Drug Contraindication: Treatment Not Indicated
--- NOTE | 2025-03-02 18:09 | HO.WOUND ---
Wound Consult: Initial 40yr old?male admitted to [facility] [place] on 03/01/25- See progress notes and H&P for detailed history.? Wound consult placed for Left medial chronic ankle wound.? Patient agreeable to assessment and photo documentation.? Patient is not able to provide meaningful details about his wound at this time. He is very sl;eepy from his OR procedure earlier in the day. Left medial ankle Etiology: ??Chronic Ulceration Measurements: 4cm x 3cm x 0.3cm Wound Bed: dry red wound bed Drainage / Odor: None noted Edges: ? epibole Whit wound: scar tissue noted deformed ankle?- No Induration, Fluctuance or Warmth noted Pain: denies reports neuropathy Goals of Treatment: ? Durafiber Q3 days for moist wound healing Recommendations: Provide adequate and supplemental nutrition.? When applicable maintain blood glucose levels per Providers order. Left Medial Ankle - Cleanse with NS moist gauze, Pat dry.? Apply barrier to periwound, apply Durafiber AG to wound bed, cover with dry gauze, ABd pad and wrap or foam dressing. Change every 3 days. Re-consult wound care Nurse for wound deterioration or wound changes.
--- NOTE | 2025-03-02 21:50 | HE.PHANOTE ---
DELIO Changed dose to 1250mg Q12H as indication is sepsis. Targeting new trough of 17, AUC 581. Next trough to be drawn 03/03 @2100.
[2025-03-03 03:42] VITALS: BP 137/93; PULSE 88; RESP 18; TEMP 37.1; O2SAT 97
[2025-03-03 06:09] LABS: Creatinine Clr Calc Pharmacy 114.0; Estimated Glomerular Filt Rate > 60
[2025-03-03 07:22] VITALS: BP 146/102; PULSE 75; RESP 16; TEMP 36.5; O2SAT 98
[2025-03-03 07:53] LABS: Anion Gap 10 (12-20); Blood Urea Nitrogen 8 mg/dL (9-16); Calcium 8.6 mg/dL (8.4-10.2); Carbon Dioxide 27 mmol/L (22-29); Chloride 105 mmol/L (96-108); Potassium 3.4 mmol/L (3.3-5.1); Sodium 139 mmol/L (135-145)
[2025-03-03] MEDS: 0.9 % Sodium Chloride Flush 3 ML SYRINGE IVFLUSH ×2 (08:39→15:16)
--- NOTE | 2025-03-03 10:01 | PM.PNORT ---
Subjective Subjective Date of Service: 03/03/25 Interval history: Postop day 1 status post I and D of felon of right index finger Patient resting comfortably in bed this morning Reports significant improvement in pain since prior to surgery No acute events overnight No other acute complaints or concerns at this time Physical Exam Vital Signs: Vital Signs: Last Vital Signs Temp 97.7 F 03/03/25 07:22 Pulse 75 03/03/25 07:22 Resp 16 03/03/25 07:22 BP 146/102 H 03/03/25 07:22 Pulse Ox 98 03/03/25 07:22 O2 Del Method Room Air 03/03/25 07:22 BMI result Body Mass Index 19.3 Extrem: Other: Patient is alert, oriented, and in no acute distress. Neuro: Normal sensation of the tips of all digits of the right hand at this time Vascular: Cap refill brisk Pain: Mild tenderness to palpation of the distal aspect of the right index finger Pain with attempted range of motion of the DIP joint of the right index finger ROM: Limited range of motion noted of the DIP joint of the right index finger secondary to pain Patient is able to flex and extend all other digits of the right hand fully and without difficulty General: Erythema and edema have both improved significantly from prior to surgical intervention, erythema is very mild at this time There is noted to be some slight purulent drainage of incision site over pad of right index finger Psych: Appears grossly normal Affect normal Attitude cooperative Procedures Date of Service Date of Service: 03/03/25 Progress Note: A&P Assessment and plan (1) Cellulitis: Status: Acute (2) Paronychia of right index finger: Status: Acute (3) Felon of finger of right hand: Status: Acute Plan 1. Status post I and D of paronychia and felon of right index finger DOS 03/02/2025 Patient appears to be recovering well postoperatively Patient is educated that once the pus has been drained from the abscess site, the best thing to do for treatment of any ongoing infection is antibiotics Daily dressing changes Dressing changed today without issue If patient continues to experience improvement, can consider discharge on oral antibiotics Continue with all other recommendations per Medicine Time Spent With Patient Time: Total time managing care of this patient today ____ minutes. Quality Stroke Does the patient have a stroke diagnosis?: No VTE Prior VTE?: No VTE Risk Level:: Medical - low VTE Device Contraindication: Treatment Not Indicated VTE Drug Contraindication: Treatment Not Indicated
[2025-03-03 12:19] VITALS: BMI 19.3
[2025-03-03 12:23] VITALS: BP 148/100; PULSE 77; RESP 19; TEMP 36.6; O2SAT 98
--- NOTE | 2025-03-03 12:26 | MHC.CLN ---
NUTRITION DIET=REGULAR. PATIENT IS UNDERWEIGHT FOR HEIGHT WITH WEIGHT 80% OF IBW. APPEARS THIN BUT NOT MALNOURISHED. ADDING ENSURE BID TO IMPROVE NUTRITIONAL INTAKE. SUPPLEMENT PROVIDES 700 KCALS, 60 G PROTEIN. FOLLOW FOR PO INTAKE. SEE CLINICAL NUTRITION ASSESSMENT 03/03/25.
--- NOTE | 2025-03-03 12:50 | W.PM.IDCN ---
History of Present Illness Data of Consult Service Date: 03/03/25 Requesting physician: Madison Mauro Primary Care Provider: Unknown Physician HPI Reason for consult: right index finger paronychia He presents with pain and purulent discharge from right index finger over last five days. He denies fever but has temperature of 100.9 on presentation and heart rate 100. PMFSH Past Medical History Medical History (Updated 03/03/25 @ 12:54 by Sonia Kong MD) Sepsis IV drug user Vasculitis Lupus (systemic lupus erythematosus) Osteomyelitis Family History Family history: reviewed and not pertinent Surgical History Surgical History Hx of foot surgery Social History Social History Household Members: None Housing: Apartment Patient Tobacco Use Status: Current everyday Tobacco user Tobacco use type: Cigarette Substance Use Type: Heroin Meds Allergies Allergy/AdvReac Type Severity Reaction Status Date / Time Sulfa (Sulfonamide Allergy Unknown Rash Verified 03/02/25 08:39 Antibiotics) Active Medications: Current Medications Acetaminophen (Acetaminophen 325 Mg Tablet) 975 mg PO Q6H PRN PRN Reason: Pain, Mild 1-3,fever,headache Buprenorphine/Naloxone (Buprenorphine/Naloxone 8/2 Mg Film) 1 film SUBLINGUAL DAILY [facility] Last Admin: 03/03/25 08:38 Dose: Not Given Calcium Carbonate (Calcium Carbonate 750 Mg Tab.Chew) 750 mg PO Q4H PRN PRN Reason: Heartburn Gabapentin (Gabapentin 600 Mg Tablet) 600 mg PO TID [facility] Last Admin: 03/03/25 08:38 Dose: 600 mg Vancomycin HCl 1,250 mg/ (Sodium Chloride) 250 mls @ 166.667 mls/hr IV Q12H [facility] Last Infusion: 03/03/25 12:41 Dose: Infused Magnesium Hydroxide (Milk Of Magnesia 30 Ml Oral.Susp) 30 ml PO DAILY PRN PRN Reason: Constipation Melatonin (Melatonin 3 Mg Tablet) 6 mg PO BEDTIME PRN PRN Reason: Insomnia Non-Formulary Medication (Buprenorphine [Sublocade]) 300 mg SUBCUT Q30D [facility] Ondansetron HCl (Ondansetron Hcl 4 Mg/2 Ml Vial) 4 mg IVPUSH Q8H PRN PRN Reason: Nausea and Vomiting Pharmacy Consult (Consult Rx Vancomycin Dosing) 1 each MISCELLANE DAILY PRN PRN Reason: Consult order Sodium Chloride (0.9 % Sodium Chloride Flush 3 Ml Syringe) 3 ml IVFLUSH [facility] Last Admin: 03/03/25 08:39 Dose: 3 ml Home Medications ?Medication ?Instructions ?Recorded ?Confirmed ?Last Taken ?Type buprenorphine 300 mg/1.5 mL 300 mg subcut QMONTH 03/02/25 03/02/25 01/29/25 History solution,exten.rel.subcutaneous syringe (Sublocade) buprenorphine 8 mg-naloxone 2 mg 1 film sublingual DAILY 03/02/25 03/02/25 Unknown History sublingual film gabapentin 600 mg tablet 600 mg PO TID 03/02/25 03/02/25 02/23/25 History Physical Exam Vital Signs: Vital Signs: Last Vital Signs Temp 97.9 F 03/03/25 12:23 Pulse 77 03/03/25 12:23 Resp 19 03/03/25 12:23 BP 148/100 H 03/03/25 12:23 Pulse Ox 98 03/03/25 12:23 O2 Del Method Room Air 03/03/25 12:23 BMI result Body Mass Index 19.3 Const: General: cooperative HEENT: Head: Yes normal to inspection Face and sinus: Yes normal facial exam Mouth: Normal oral and palatal mucosa present Teeth and gingiva: dentition normal Eyes: General: appearance normal, both eyes and all related structures Pupils: Equal, round and reactive pupils present Resp: Effort & Inspection: normal respiratory effort Cardio: Rate: regular rate Rhythm: regular rhythm GI: Palpation (GI): Soft to palpation and nontender : General: Yes no CVA tenderness Back/Spine/Pelvis: Back: no CVA tenderness Skin: General skin exam: no rashes or lesions noted Neuro: General: moves all extremities Cranial nerves: Yes Equal, round and reactive pupils present Extrem: Other: wrapped finger/hand General: Yes normal to inspection Psych: Appearance: grossly normal Results Labs 03/02/25 04:55 03/03/25 05:30 Labs: BMP 03/03/25 05:30 Sodium 139 Potassium 3.4 Chloride 105 Carbon Dioxide 27 BUN 8 L Creatinine 0.80 Calcium 8.6 Microbiology Microbiology Results: Microbiology 03/02/25 10:11 Finger Right Index Gram Stain - Final 03/02/25 10:11 Finger Right Index Routine Culture - Preliminary Streptococcus pyogenes (Grp A) 03/01/25 21:08 Blood - Venous Blood Culture - Preliminary No growth after 24 hours. 03/01/25 21:08 Blood - Venous Blood Culture - Preliminary No growth after 24 hours. Assessment and Plan (1) Paronychia of right index finger: Status: Acute (2) Sepsis: Status: Acute Plan He has resolving cellulitis and no organism found. Would give po Doxycycline for 14 days and follow with Hand
--- NOTE | 2025-03-03 12:55 | PM.EVENT ---
Event Note Date of Service: 03/03/25 Event Note: Group A strep found so would give po Amoxicillin 500 mg tid instead of Doxycycline or Clindamycin 450 mg tid for 10 days, no chewing nails as often this is oral organism Time Spent With Patient Time: Total time managing care of this patient today ____ minutes.
--- NOTE | 2025-03-03 13:41 | MHC.CM.PN ---
Addendum entered by Lilian Read 03/04/25 08:04: PT DISCHARGED AFTER CM HOURS, HOME SELF CARE Original Note: PT REPORTS HE LIVES WITH HIS S/O AND THEY HAVE BEEN STAYING IN [place] HE IS INDEPENDENT, HAS NO DME AND NO SERVICES HE HAS A PCP AT [facility] IN [place] HE DECLINES A HCP DCP: RETURN TO [place] [facility]IA [facility] VS PVTA
[2025-03-03 15:35] VITALS: BP 140/85; PULSE 77; RESP 17; TEMP 36.9; O2SAT 99
--- NOTE | 2025-03-03 16:41 | P.PNIM_ITS ---
Subjective Subjective Date of Service: 03/03/25 Interval History: Sepsis due right index finger cellulitis Review of Systems Patient had mild finger pain, went for surgery today. Review of Systems: Yes all other systems are reviewed and are negative Physical Exam 2 Exam: Exam: Appearance: Alert.? Oriented X3.? . cvs: rrr, [id number] . res: clear to auscultation ,no rhonchii or wheezing abd: no rebound or guarding ,nt, bs present. skin:(per ortho documentation)Erythema noted diffusely throughout the distal phalanx of the right index finger There is noted to be some slight purulent drainage of 2 puncture sites of the distal aspect of the right index finger. ext pulses present , no cyanosis . neuro: axo3 , nonfocal. Vital Signs: Vital Signs: Last Vital Signs Temp 98.4 F 03/03/25 15:35 Pulse 77 03/03/25 15:35 Resp 17 03/03/25 15:35 BP 140/85 H 03/03/25 15:35 Pulse Ox 99 03/03/25 15:35 O2 Del Method Room Air 03/03/25 15:35 BMI result Body Mass Index 19.3 Objective Data Active Medications Acetaminophen (Acetaminophen 325 Mg Tablet) 975 mg PO Q6H PRN PRN Reason: Pain, Mild 1-3,fever,headache Buprenorphine/Naloxone (Buprenorphine/Naloxone 8/2 Mg Film) 1 film SUBLINGUAL DAILY [facility] Last Admin: 03/03/25 08:38 Dose: Not Given Documented By: JOVITA Non-Admin Reason: Patient Refused Calcium Carbonate (Calcium Carbonate 750 Mg Tab.Chew) 750 mg PO Q4H PRN PRN Reason: Heartburn Gabapentin (Gabapentin 600 Mg Tablet) 600 mg PO TID [facility] Last Admin: 03/03/25 14:09 Dose: 600 mg Documented By: JOVITA Vancomycin HCl 1,250 mg/ (Sodium Chloride) 250 mls @ 166.667 mls/hr IV Q12H [facility] Last Infusion: 03/03/25 12:41 Dose: Infused Documented By: JOVITA Magnesium Hydroxide (Milk Of Magnesia 30 Ml Oral.Susp) 30 ml PO DAILY PRN PRN Reason: Constipation Melatonin (Melatonin 3 Mg Tablet) 6 mg PO BEDTIME PRN PRN Reason: Insomnia Non-Formulary Medication (Buprenorphine [Sublocade]) 300 mg SUBCUT Q30D [facility] Ondansetron HCl (Ondansetron Hcl 4 Mg/2 Ml Vial) 4 mg IVPUSH Q8H PRN PRN Reason: Nausea and Vomiting Pharmacy Consult (Consult Rx Vancomycin Dosing) 1 each MISCELLANE DAILY PRN PRN Reason: Consult order Sodium Chloride (0.9 % Sodium Chloride Flush 3 Ml Syringe) 3 ml IVFLUSH QSHIFT [facility] Last Admin: 03/03/25 15:16 Dose: 3 ml Documented By: MELISSA Labs 03/02/25 04:55 03/03/25 05:30 Labs: Laboratory Results - last 24 hr 03/02/25 03/03/25 20:56 05:30 Hold Purple Top SEE NOTE Anion Gap 10 L Estim Creat Clear Calc 114.0 Estimated GFR > 60 Random Glucose 103 Calcium 8.6 Random Vancomycin 10.8 L Microbiology Microbiology Results: Microbiology 03/02/25 10:11 Gram Stain - Final Finger Right Index Routine Culture - Preliminary Streptococcus pyogenes (Grp A) 03/01/25 21:08 Blood Culture - Preliminary Blood - Venous No growth after 24 hours. 03/01/25 21:08 Blood Culture - Preliminary Blood - Venous No growth after 24 hours. Assessment and Plan (1) Paronychia of right index finger: Status: Acute Assessment and Plan: 40-year-old male with pertinent history of SLE, vasculitis, hypertension who is noncompliant with home medications presents to the emergency department for concerns of finger infection. Sepsis due right index finger cellulitis with paronychia and ?underlying abscess: Consulted Orthopedic surgery-s/p Right index finger I and D of felon and paronychia infection,continue Resuscitated with IV crystalloids, empiric IV antibiotics. Lactic acid normal and blood culture pending . ID eval. Normocytic anemia: Hemoglobin above transfusion threshold Hypertension: Patient is not compliant with home antihypertensives. Resume once med rec is complete SLE: Not compliant with home prescription medications Chronic venous ulcer: Wound care DVT: Defer Lovenox until orthopedic evaluation Full code Admit as inpatient and will require two night minimum hospital stay for IV antibiotics (as above), which is not possible in a lesser acute setting. Specialist consult pendin Quality Stroke Does the patient have a stroke diagnosis?: No VTE Prior VTE?: No VTE Risk Level:: Medical - low VTE Device Contraindication: Treatment Not Indicated VTE Drug Contraindication: Treatment Not Indicated
--- NOTE | 2025-03-03 17:02 | PC.NURSE ---
Pt getting dressed and states I have to leave. I have to get back to my things Dr Mauro notified and will come talk to pt.
--- NOTE | 2025-03-03 17:11 | PM.DS ---
DS: Providers Provider Date of Service: 03/03/25 Date of admission: 03/01/25 22:08 Date of discharge: 03/03/25 Primary care physician: Unknown Physician Consults: 03/01/25 23:26 Consult to Orthopedics [place]ine [place] [facility] Reason for consultation: finger infection 03/02/25 15:07 Consult to Wound Care Routine Reason for consultation: chronic left ankle ulcer 03/02/25 15:34 Consult to Infectious Diseases Routine Consulting [place] [facility] Reason for consultation: right index finger cellulitis with paronychia and ?underlying abscess Attending physician on discharge: Madison Mauro Discharging clinician: Madison Mauro DS: Diagnosis Discharge Diagnosis (1) Paronychia of right index finger: Status: Acute DS: Summary Hospital Course Hospital Course: HPI:40-year-old male with pertinent history of SLE, vasculitis, hypertension, polysubstance IV drug use disorder who is noncompliant with home medications presents to the emergency department for concerns of finger infection. Patient states he noticed infection below the right index finger nail 3 days prior to presentation. No inciting factor. There was associated swelling, redness and warmth. Patient tried to self drain the infection multiple times using a needle. He subsequently noticed purulent foul-smelling drainage from the volar surface of the finger. Patient has significant pain and is unable to flex the distal part of his right index finger due to pain. Has associated fever. No chills, nausea, vomiting, chest pain, palpitations, shortness of breath, abdominal pain, changes in urinary or bowel habits. Patient admits that he has not been compliant with his home prescription medications as he is in the middle of moving. Denies recent IV drug use. In the emergency department, patient was found to be septic and given empiric IV antibiotics. hospital course: 40-year-old male with pertinent history of SLE, vasculitis, hypertension who is noncompliant with home medications presents to the emergency department for concerns of finger infection. Sepsis due right index finger cellulitis with paronychia and ?underlying abscess: Consulted Orthopedic surgery-s/p Right index finger I and D of felon and paronychia infection,continue Resuscitated with IV crystalloids, empiric IV antibiotics. Lactic acid normal and blood culture negative @ 24 hrs , finger cultures pending . ID eval-rec for complete augmentin 500 mg po tidx10 days . Normocytic anemia: Hemoglobin above transfusion threshold elevated bp: patient noncomplaint with meds , currently wants to try in lifestyle modification, also monitor blood pressure out patiently and he says he takes amlodipine but dose he does not know, added amlodipine 2.5 mg daily for now until he sees his PCP in [facility]. SLE: Not compliant with home prescription medications Chronic venous ulcer: Wound care rec:Provide adequate and supplemental nutrition.? When applicable maintain blood glucose levels per Providers order. Left Medial Ankle - Cleanse with NS moist gauze, Pat dry.? Apply barrier to periwound, apply Durafiber AG to wound bed, cover with dry gauze, ABd pad and wrap or foam dressing. Change every 3 days. plan: complete augmentin 500 mg po tidx10 days. amlodipine 2.5 po qd. Wound care as above- for leg wound and index finger . follow up with ortho outpatient. Above management discussed with the patient detail length he understand and in agreement with the above plan, time spent 45 minute. Time Attestation Total time managing care of this patient today: 45 mintues. Discharge Coordination Time (in mins): 45min Quality: Safe Use of Opioids Does Pt have an Active Cancer Diagnosis on the Problem List?: No Quality: Stroke Does the patient have a stroke diagnosis?: No Physical Exam Exam: Exam: Appearance: Alert.? Oriented X3.? . cvs: rrr, [id number] . res: clear to auscultation ,no rhonchii or wheezing abd: no rebound or guarding ,nt, bs present. skin:(per ortho documentation)Erythema /pain -improving leg wound: please see wound care note for pic-clean. ext pulses present , no cyanosis . neuro: axo3 , nonfocal. Vital Signs: Vital Signs: Last Vital Signs Temp 98.4 F 03/03/25 15:35 Pulse 77 03/03/25 15:35 Resp 17 03/03/25 15:35 BP 140/85 H 03/03/25 15:35 Pulse Ox 99 03/03/25 15:35 O2 Del Method Room Air 03/03/25 15:35 BMI result Body Mass Index 19.3 DS: Data Data Completed and Pending Labs on day of discharge: Laboratory Results - last 24 hr 03/02/25 03/03/25 20:56 05:30 Hold Purple Top SEE NOTE Sodium 139 Potassium 3.4 Chloride 105 Carbon Dioxide 27 Anion Gap 10 L BUN 8 L Creatinine 0.80 Estim Creat Clear Calc 114.0 Estimated GFR > 60 Random Glucose 103 Calcium 8.6 Random Vancomycin 10.8 L Preliminary micro results at discharge 03/02/25 10:11 Routine Culture - Preliminary Finger Right Index Streptococcus pyogenes (Grp A) 03/01/25 21:08 Blood Culture - Preliminary Blood - Venous No growth after 24 hours. 03/01/25 21:08 Blood Culture - Preliminary Blood - Venous No growth after 24 hours. Imaging Chest x-ray: Radiologist's impression: xray hand; 1. No acute fracture or aggressive osseous erosions. 2. Abnormal soft tissues of the likely distal defect of the 2nd digit. Discharge Plan Discharge Anticipated Discharge Date/Time: 03/03/25 17:04 Patient Disposition: Home, Self-Care Discharge Diagnosis: cellulitis /paronychia index finger Referrals: Guerrero Stanley PA [Physician Clinical Coder, Hand Surgery] - 1 Week Physician,Lali Freire [Primary Care Provider, Medical] - 1 Week Discharge Medications: New amoxicillin-pot clavulanate 500-125 mg Tablet 1 tab PO Q8H Qty: 30 0RF amlodipine 2.5 mg tablet 2.5 mg PO DAILY Qty: 30 0RF Continued gabapentin 600 mg tablet 600 mg PO TID buprenorphine-naloxone 8-2 mg film 1 film sublingual DAILY Sublocade 300 mg/1.5 mL solution, extended rel syringe 300 mg SUBCUT QMONTH Discharge Orders: Discharge Order (Routine); Ordered 03/03/25 Ordered By: Madison Mauro Diet: Advance to usual diet Activity on Discharge: As tolerated Stand Alone Forms: Patient Portal Discharge page Print Language: Prydeinig Activity Restrictions/Additional Instructions: Provide adequate and supplemental nutrition.? When applicable maintain blood glucose levels per Providers order. Left Medial Ankle - Cleanse with NS moist gauze, Pat dry.? Apply barrier to periwound, apply Durafiber AG to wound bed, cover with dry gauze, ABd pad and wrap or foam dressing. Change every 3 days. Care Plan Goals: complete augmentin 500 mg po tidx10 days. amlodipine 2.5 po qd. follow up with ortho outpatient. Health Concerns: Patient seems to be improved, complete antibiotics as above. Follow up with ortho outpatient, also patient was advised for dressing change patient currently does not want to stay more. Plan of Treatment: As above. Assessment: As above. Discharge Date/Time: 03/03/25 18:08
--- NOTE | 2025-03-03 18:01 | PC.NURSE ---
Dr Mauro in to see pt. Discharge instructions reviewed with pt. Instructions for dressing changes reviewed however pt seems preoccupied and anxious to leave but verbalized understanding. Po antibiotic given to pt prior to discharge per MD. Dressing supplies sent home with pt per MD instructions. Pt instructed to poultry picker antibiotic prescription at pharmacy and to followup with PCP and orthopedic MD. Verbalized understanding
== END 2025-03-03 18:08 | disposition home or self-care (01) | DRG 872 ==
LOC: HO.ED 22:08 → HO.EDOVER 22:22 → HO.S3 03-02 14:29
PROVIDERS: Orthopaedic Surgery; Physician Assistant Medical; Physician Assistant Surgical; Admitting Provider Student in an Organized Health Care Education/Training Program; Emergency Provider Emergency Medicine; Visit Provider Internal Medicine
DX: A41.9 Sepsis, unspecified organism (principal); F11.20 Opioid dependence, uncomplicated; L97.329 Non-pressure chronic ulcer of left ankle with unspecified severity; L02.511 Cutaneous abscess of right hand; F17.210 Nicotine dependence, cigarettes, uncomplicated; Z71.6 Tobacco abuse counseling; M32.9 Systemic lupus erythematosus, unspecified; I10 Essential (primary) hypertension; L03.011 Cellulitis of right finger; I87.2 Venous insufficiency (chronic) (peripheral); B95.0 Streptococcus, group A, as the cause of diseases classified elsewhere; D64.9 Anemia, unspecified; Z91.148 Patient's other noncompliance with medication regimen for other reason; Z79.899 Other long term (current) drug therapy
CPT/HCPCS: 36415; 73140; 80048; 80053; 80202; 82565; 83605; 85025; 87040; 87070; 87077; 87147; 87186; 87205; 99285; J0665; J2543; J3374; J3480

== ENCOUNTER → 2025-03-01 20:47 | Outpatient (BNV) | payer MEDICARE, MEDICAID, SELFPAY | PROVIDERS: Emergency Provider Emergency Medicine; Visit Provider Radiology Neuroradiology | DX: L02.611 Cutaneous abscess of right foot (principal) | CPT/HCPCS: 73140 ==

== ENCOUNTER → 2025-03-01 22:08 | Outpatient (BNV) | payer MEDICARE, MEDICAID, SELFPAY | PROVIDERS: Admitting Provider Student in an Organized Health Care Education/Training Program; Emergency Provider Emergency Medicine | DX: L03.011 Cellulitis of right finger (principal); L03.90 Cellulitis, unspecified | CPT/HCPCS: 99024 ==

== ENCOUNTER → 2025-03-01 22:08 | Outpatient (BNV) | payer MEDICARE, MEDICAID, SELFPAY | PROVIDERS: Admitting Provider Student in an Organized Health Care Education/Training Program; Emergency Provider Emergency Medicine; Visit Provider Student in an Organized Health Care Education/Training Program | DX: L03.011 Cellulitis of right finger (principal); L03.90 Cellulitis, unspecified | CPT/HCPCS: 99222; 99232; 99239; 99499 ==

== ENCOUNTER → 2025-03-01 22:08 | Outpatient (BNV) | payer MEDICARE, MEDICAID, SELFPAY | PROVIDERS: Admitting Provider Student in an Organized Health Care Education/Training Program; Emergency Provider Emergency Medicine; Visit Provider Internal Medicine | DX: A41.9 Sepsis, unspecified organism (principal); L03.011 Cellulitis of right finger | CPT/HCPCS: 99232; 99499 ==

== ENCOUNTER 2025-06-18 17:33 | Emergency (ER) | payer MEDICARE, MEDICAID, SELFPAY ==
--- OUTSIDE RECORDS SUMMARY | 2025-06-16 23:59 | XMS_ITS | Continuity of Care Document ---
Author Organization [facility] Address [address] [place] [address]- Care Team Providers Care Research Dietitian Name Role Phone Geeta Chang MD Primary Care Phys[id number]): [facility]25 [facility] Adult [address] [place] [address]- Encounter Diagnosis Administrative encounter(Discharge Diagnosis) - 06/07/25 Attending Physician: Geeta Chang MD Encounter Type: Office Visit Allergies, Adverse Reactions, Alerts Substance Criticality Severity Reaction Reaction Severity Status doxycycline Active sulfADIAZINE rash Active Other Environmental Allergy Perennial allergic rhinitis with seasonal variation Active Functional Status Functional Status Assessment Assessment Assessment Component Result Effecti ve Date Disability status [CUBS] I'm Thriving - no identified disability 06/09/25 Because of a physica l, mental, or emotional condition, do you have difficulty doing errands alone such as visiting a physician's office or shopping No 06/09/25 Are you deaf, or do you have serious difficulty hearing No 06/09/25 Do you have difficul ty dressing or bathing No 06/09/25 Do you need any rafat tional assistance or accommodations during your visit No 06/09/25 Do you have serious difficulty walking or climbing stairs No 06/09/25 Difficulty Reading O r Writing No 06/09/25 Because of a physica l, mental, or emotional condition, do you have serious difficulty concentrating, remembering, or making decisions No 06/09/25 Difficulty communica ting in usual language No 06/09/25 Are you blind, or do you have serious difficulty seeing, even when wearing glasses No 06/09/25 Immunizations Given and Recorded Vaccine Date Status Refusal Reason influenza virus vaccine, inactivated 05/06/21 Jean rded tetanus/diphtheria/pertussis, acel(Tdap) 01/22/18 Recorded Medications amlodipine-benazepril 5 mg-10 mg oral capsule 1 capsule, By Mouth, Daily, # 90 capsule, 1 Refills, Maintenance, 02/04/24 11:21:00 AM EDT, Capsule,[facility]/pharmacy #[id number], Partial fill upon patient request if the prescription is for a schedule II opioid drug., 1 capsule By Mouth Daily, 182, cm, 01/11/24 14:05:00 EDT, Height Start Date: 02/04/24 Status: Ordered Medication Dispense Status: Completed Quantity: 90.0 Unit: capsule Total Allowed Fills: 2 Fills Dispensed: 0 Indications: Essential (primary) hypertension; folic acid 1 mg oral tablet 1 mg, 1, tablet, By Mouth, Daily, Take 1 tablet daily with breakfast, # 30 tablet, Refills 6, Tot. Refills 6, Maintenance, 07/05/24 4:50:00 PM EST, Route to Pharmacy Electronically, [facility]/pharmacy #[id number], Partial fill upon patient request if the prescription is for a schedule II opioid drug., 182, cm,07/05/24 16:34:00 EST, Height Start Date: 07/05/24 Status: Ordered Medication Dispense Status: Completed Quantity: 30.0 Unit: tablet Total Allowed Fills: 7 Fills Dispensed: 0 gabapentin 600 mg oral tablet 1 tablet, By Mouth, 3 times a day, # 90 tablet, 3 Refills, Maintenance, 03/01/25 9:35:00 AM EDT, [id number], 183, cm, 12/25/24 9:53:00 EDT, Height, 73, kg, 12/25/24 9:53:00 EDT, Dry Weight Start Date: 03/01/25 Status: Ordered Medication Dispense Status: Completed Quantity: 90.0 Unit: tablet Total Allowed Fills: 1 Fills Dispensed: 0 hydroxychloroquine 200 mg oral tablet 200 mg, 1, tablet, By Mouth, Daily, # 30 tablet, Refills 6, Tot. Refills 6, Maintenance, 05/25/25 3:54:00 PM EDT, Route to Pharmacy Electronically, [facility]/pharmacy #[id number], Partial fill upon patient request if the prescription is for a schedule II opioid drug., 183, cm, 04/22/25 11:50:00 EDT, Height, 73, kg, 12/25/24 9:53:00 EDT, Dry Weight Start Date: 05/25/25 Status: Ordered Medication Dispense Status: Completed Quantity: 30.0 Unit: tablet Total Allowed Fills: 7 Fills Dispensed: 0 methotrexate 2.5 mg oral tablet 6 tablet = 15 mg, By Mouth, Every week, Take 6 tablets once a week at bedtime, # 30 tablet, 6 Refills, Maintenance, 07/05/24 4:49:00 PM EST, [facility]/pharmacy #[id number], Partial fill upon patient request if the prescription is for a schedule II opioid drug., 182, cm, 07/05/24 16:34:00 EST, Height Start Date: 07/05/24 Stop Date: 01/31/25 Status: Ordered Medication Dispense Status: Completed Quantity: 30.0 Unit: tablet Total Allowed Fills: 7 Fills Dispensed: 0 Suboxone 8 mg-2 mg Sublingual Film See Instructions, 0 Refills, Maintenance, 11/30/24 10:03:00 AM EDT, Partial fill upon patient requestif the prescription is for a schedule II opioid drug. Start Date: 11/30/24 Status: Ordered Medication Dispense Status: Completed Total Allowed Fills: 1 Fills Dispensed: 0 Mental Status Mental Status Assessment Assessment Assessment Component Result Effecti ve Date Patient Health Questionnaire 2 item (PHQ-2) total score [Reported] 0 06/09/25 Problem List Condition Confirmation Course Effective Dates Status Health St atus Informant Leg wound, left Confirmed Active History of foot drop Confirmed Active History of drug abuse Confirmed Active History of vasculitis Confirmed Active Hypertension Confirmed Active Neuropathy Confirmed Active SLE (systemic lupus erythematosus) Confirmed Active Vasculitic neuropathy Confirmed Active Diagnosis Diagnosis Type Effective Dates Health Status Clinical Service Informant Administrative encounter Discharge Diagnosis 06/07/25 Vital Signs Most recent to oldest [Reference Range]: 1 Height 183 cm (06/09/25 3:51 PM) Weight 69.8 kg (06/09/25 3:51 PM) Oxygen Saturation [94-100 %] 98 % (06/09/25 3:51 PM) Pulse Rate [55-90 bpm] 119 bpm *H* (06/09/25 3:51 PM) Body Mass Index [18.5-24.99 kg/m2] 20.84 kg/m2 (06/09/25 3:51 PM) Blood Pressure [90-138/55-84 mm Hg] 111/ 75mm Hg (06/09/25 3:51 PM) Blood pressure sites Arm, right (06/09/25 3:51 PM) Weight Obtained Via Standing scale (06/09/25 3:51 PM) Social History Social History Type Response Sexual Sexually involved in last 6 months: No. Gender of partner(s): Female. STD/HIV prevention: Condom use 100% of the time. Smoking Status 10 or more cigarette s (1/2 pack or more)/day in last 30 days entered on: 11/13/21 Sex Sex Representation Male (finding) Patient Care team information Care Team Personnel Name: Geeta Chang MD Position: [facility] Physician - Primary Care Member Role: PCP Address: [address] [place] [id number] Telecom: Care Team Related Persons Name: MARIUSZ BARRIOS Name: SWETHA TORRES Insurance Providers Guarantor name: DIPAK TORRES Health Plan Information #: 1 Payer: MEDICARE B Payer Identifier: NA Member Number: [id number] Group Number: Subscriber Identifier: [id number] Relationship to Subscriber: self Coverage Type: NA Coverage Verification Date: NA Telecom: NA Address: Health Plan Information #: 2 Payer: [employer] Payer Identifier: NA Member Number: [id number] Group Number: Subscriber Identifier: [id number] Relationship to Subscriber: self Coverage Type: MEDICAID Coverage Verification Date: Telecom: Address:
[2025-06-18] VITALS (12 sets, daily range): BP systolic 83–115; BP diastolic 45–71; PULSE 82–112; RESP 14–32; TEMP 37.6–40; O2SAT 95–98; BMI 19.0
--- NOTE | ~2025-06-18 | CT_ITS ---
CLINICAL HISTORY: goiter, external jugular phlebitis vs abscess CT soft tissue neck with contrast Comparison: None provided Findings: The visualized intracranial contents are unremarkable. No prevertebral fluid. Epiglottis is within normal limits. Pharyngeal mucosal space and parapharyngeal fat are normal. Asymmetric thickening of the ventricular fold extending through the suprahyoid region, sagittal image number 41 of 85 series 19. Salivary glands are unremarkable. No sialoliths. The thyroid is hypertrophic and heterogeneous in attenuation. There is diffuse soft tissue interstitial edema of the anterior soft tissue neck extending from the retropharyngeal space caudad into the superior mediastinum. Centrilobular patchy subcentimeter nodularities in the visualized upper lobes. No acute fracture or dislocation. Azygous lobe present. IMPRESSION: 1. Diffuse soft tissue interstitial edema of the anterior neck extending from retropharyngeal space to superior mediastinum; cellulitis of the anterior soft tissue neck extending through the superior mediastinum. 2. Thyroid hypertrophy with heterogeneous attenuation; goiter. 3. Centrilobular patchy subcentimeter nodularities in visualized upper lobes; pulmonary hematogenous infection sequela suspected. 4. Asymmetric thickening of the ventricular fold extending through the suprahyoid region; infection sequela. Squamous cell carcinoma can not be excluded. Short-term follow-up is suggested. This document has been electronically signed by: Chaka Alonzo MD on 06/18/2025 20:13:08
--- NOTE | ~2025-06-18 | CT_ITS ---
CLINICAL HISTORY: tachy, fever, cough, LUE swelling. IVDU CT angiography chest with contrast. 3D Postprocessing. Comparison: None provided Findings: The heart is normal size. RV/LV ratio is normal. The thoracic aorta is normal caliber. No pulmonary artery filling defects. The thyroid is hypertrophic and heterogeneous in attenuation. The superior mediastinum is heterogeneous in attenuation. Small patchy areas centrilobular ground-glass opacities in the left and right lung. Trace left pleural effusion. The visualized upper abdomen is unremarkable. No acute fractures. Azygous lobe is present. IMPRESSION: 1. Small patchy areas of centrilobular ground-glass opacities in bilateral lungs ; bilateral pneumonias. Consider pulmonary hematogenous infection. Clinical correlation suggested. 2. Acute mediastinitis suspected. 3. Trace left pleural effusion. 4. No main or segmental pulmonary emboli identified. 5. Thyroid hypertrophy with heterogeneous attenuation; goiter. Nonemergent thyroid ultrasound correlation suggested. This document has been electronically signed by: Chaka Alonzo MD on 06/18/2025 20:03:29
--- NOTE | ~2025-06-18 | XR_ITS ---
CLINICAL HISTORY: medial leg ulcer. 4 view left ankle Comparison: None provided Findings: Mild osteopenia. Mild osteopenia. No significant arthritic change or erosions. No ankle effusion. No radiopaque foreign body. Ulceration of the medial aspect of the ankle, 4.8 cm proximal to distal by 0.7 cm in maximum depth. Sclerosis of the talocalcaneal posterior articular facet. IMPRESSION: 1. Ulceration of the medial aspect of the ankle, measuring 4.8 cm x 0.7 cm. 2. 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 3. Mild osteopenia. 4. No acute osseous injury. This document has been electronically signed by: Chaka Alonzo MD on 06/18/2025 19:55:21
--- NOTE | 2025-06-18 17:35 | ECG_ITS ---
Test Reason : chest pain Blood Pressure : */* mmHG Vent. Rate : 101 BPM Atrial Rate : 101 BPM P-R Int : 136 ms QRS Dur : 90 ms QT Int : 328 ms P-R-T Axes : 80 48 32 degrees QTcB Int : 425 ms Sinus tachycardia Otherwise normal ECG No previous ECGs available Referred By: Generic ED Physician Electronically Signed By: Lamont Hackett
--- NOTE | 2025-06-18 17:49 | ED_ITS ---
HPI - General Adult General Chief complaint: Chest Pain Stated complaint: CP, Difficulty breathing Time Seen by Provider: 06/18/25 17:54 History of Present Illness ED Provider: sean LANTIGUA narrative: Author / Clinician: Zeus Wade MD (Emergency Medicine) Chief Complaint Chest pain. History of Present Illness The patient presents to the Emergency Department accompanied by a caregiver with a primary complaint of central chest pain that began on (today is Thursday), worsening on Thursday. The pain is currently the patient?s worst symptom. On Thursday the caregiver recorded a temperature of 99.6 ?F at home. The patient reports associated shortness of breath, productive cough with phlegm (no blood), mild exertional dyspnea, and difficulty speaking due to breathlessness. The patient was recently exposed to someone with pneumonia. The patient has a history of systemic lupus erythematosus and vasculitis. There is no known history of deep vein thrombosis, pulmonary embolism, endocarditis, or infected heart valve. Additional concern is a chronic left-leg wound that has been present for years but has significantly worsened over the past 5 days. The wound is now completely open, malodorous, red, and swollen; the caregiver feels it is ?the worst it has ever looked.? The caregiver has been attempting to bathe the wound for the last day and a half due to the odor. The clinician?s bedside impression is that the wound appears consistent with cellulitis. The patient has an upcoming appointment for possible amputation of the affected leg. Neck: caregiver notes the patient ?can barely swallow.? On exam the clinician notes a markedly enlarged thyroid/goiter. The patient denies injecting into the jugular vein; track roberts are noted near the ear. Substance use history: recent psychiatric hospitalization (sectioned on Feb) for opioid use disorder; patient was abstinent for ~3 weeks post-discharge but has since relapsed to some opioid use. Home blood pressure reportedly as low as 87 mm Hg earlier today, prompting caregiver concern. Review of Systems - Constitutional: Reported Tmax 99.6 ?F on Thursday. - Cardiovascular: Central chest pain since , worsened Thursday. - Respiratory: Shortness of breath, exertional dyspnea, productive cough with phlegm; denies hemoptysis. - GI: Difficulty swallowing. - Musculoskeletal/Skin: Left leg redness, swelling, malodorous open wound. - Endocrine/Neck: Noted neck enlargement/goiter. Physical Examination Vital Signs: Physical Exam: - General: Patient appears ill and dyspneic, with difficulty speaking full sentences. - Neck: Markedly enlarged thyroid/goiter; no obvious jugular injection site. - Skin/Extremities: Left leg with large open malodorous wound, surrounding erythema and swelling consistent with cellulitis. Track roberts noted near left ear. - Cardiopulmonary: Limited description in transcript; patient short of breath at rest and with minimal activity. Emergency Department Course Peripheral IV established; IV fluids initiated (one liter ordered). Initial laboratory and imaging orders placed (to include evaluation of neck/goiter and to rule out thrombus). Bedside assessment of left arm for possible missed injection site cellulitis performed. Ongoing monitoring of vital signs and perfusion. Caregiver present at bedside throughout. Assessment & Plan Diagnosis: - Chest pain, etiology undifferentiated (rule out cardiac, pulmonary, infectious causes). - Left-leg cellulitis with chronic wound. - Dyspnea with productive cough, concern for pneumonia vs other pulmonary pathology. - Marked thyroid enlargement (goiter), underlying thyroid disorder versus incidental finding. - Opioid use disorder, recent relapse. Plan: - Continue IV fluid resuscitation. - Complete ordered laboratory studies and imaging to evaluate chest pain, dyspnea, and enlarged thyroid (neck study) and to assess for thrombosis. - Wound care for left-leg cellulitis. - Symptomatic management of pain and dyspnea as clinically indicated. - Monitor hemodynamics closely given reported hypotension. Disposition Patient remains in the Emergency Department for further diagnostic work-up and management. Related Data Home Medications ?Medication ?Instructions ?Recorded ?Confirmed buprenorphine 300 mg/1.5 mL 300 mg subcut QMONTH 03/0203/02/25 solution,exten.rel.subcutaneous syringe (Sublocade) buprenorphine 8 mg-naloxone 2 mg 1 film sublingual SHARIFA LY 03/02/25 03/02/25 sublingual film gabapentin 600 mg tablet 600 mg PO TID 03/02/2503/02 Previous Rx's ?Medication ?Instructions ?Recorded amlodipine 2.5 mg tablet 2.5 mg PO DAILY #30 tabs 03/20 amoxicillin 500 mg-potassium 1 tab PO Q8H #30 tabs 03/20 clavulanate 125 mg tablet Allergies Allergy/AdvReac Type Severity Reaction Status Date / Time Sulfa (Sulfonamide Allergy Unknown Rash Verified 06/18/25 17:53 Antibiotics) doxycycline Allergy Unknown Verified 06/18/25 17:53 [facility] Past Medical History Medical History (Updated 06/18/25 @ 20:38 by Zeus Wade MD) Sepsis IV drug user Vasculitis Lupus (systemic lupus erythematosus) Osteomyelitis Surgical History Hx of foot surgery Social History Social History Household Members: None Housing: Apartment Patient Tobacco Use Status: Current everyday Tobacco user Tobacco use type: Cigarette Smoked in Last 30 Days: Yes Use of substances other than those prescribed or required for medical reasons: Yes Substance Use Type: Crack/Cocaine and Heroin Substance Use Frequency: Recent Binge Last Used Substance: Days (ago) Any prior treatment program specific to substance use: Yes Advance Directives: No Advance Directives Information Provided: No service: No Physical Exam ED Vital Signs: Vital Signs - 24 hr 06/18/25 17:50 06/18/25 18:14 06/18/25 18:33 Temperature 99.8 F 104.0 F H Pulse Rate 104 H 112 H 104 H Respiratory Rate 20 20 32 H Blood Pressure 83/48 L 115/62 108/62 Pulse Oximetry 95 96 96 Oxygen Delivery Method Room Air Room Air Room Air 06/18/25 19:17 06/18/25 19:17 06/18/25 19:35 Temperature Pulse Rate 96 91 Respiratory Rate 30 H 24 H 17 Blood Pressure 94/52 L 85/45 L Pulse Oximetry 95 95 Oxygen Delivery Method Room Air Room Air 06/18/25 19:45 06/18/25 19:52 06/18/25 20:05 Temperature Pulse Rate 88 90 82 Respiratory Rate 14 19 25 H Blood Pressure 91/50 L 96/65 102/69 Pulse Oximetry 96 96 98 Oxygen Delivery Method Room Air Room Air Room Air 06/18/25 20:16 06/18/25 20:31 06/18/25 21:37 Temperature 99.6 F Pulse Rate 98 88 89 Respiratory Rate 20 14 17 Blood Pressure 103/51 L 83/46 L 106/71 Pulse Oximetry 95 97 95 Oxygen Delivery Method Room Air Room Air Room Air 06/18/25 21:39 Temperature 99.6 F Pulse Rate 89 Respiratory Rate 17 Blood Pressure 106/71 Pulse Oximetry 95 Oxygen Delivery Method Room Air BMI result Body Mass Index 19.0 Course Course Course Narrative: Rapid medical examination performed in triage by Marlena Estrada PA-C: Patient is a 40 year old assigned male at presenting to the emergency department with left arm swelling, chest pain, and shortness of breath. Detailed physical exam and review of systems are deferred to the speech and language clinician. EKG, labs, imaging, swabs] ordered. electrical installation supervisor aware. Reevaluation(s) Reevaluation #1: 7:46 PM 06/18/2025 (Dr. Zeus Wade): Focused sepsis reexamination. Patient has received total of 2 L crystalloid thus far he began about 10 minutes ago to downtrend with his blood pressure he was stable for awhile but around 10 minutes ago his map was 55 followed 5 minutes later by 57 followed by this time right now at 62. He is getting additional crystalloid bolus if he does not improve after this we will put him on vasopressors Reevaluation #2: 8:13 PM 06/18/2025 (Dr. Zeus Wade): CT reveals likely septic pulmonary emboli but also mediastinitis unclear cause of this at this time there has been no retching to suggest esophageal rupture could be bleb or peripheral septic emboli and/or abscess with rupture into the mediastinum We have no thoracic surgery here I think the patient would be better served at a place where he could have GI and/or thoracic surgery in the possibility if he decompensates or need surgical intervention.will call tertiary center Reevaluation #3: 20:22: I just received the results of the CT of the neck which shows inflammatory process highly concerning for retropharyngeal space abscess or infection. This would explain the patient's significant sore throat and difficulty swallowing which he only elaborate it to me recently in the ED course. He is protecting his airway has no stridor but I would be concerned about impending airway compromise I will add clindamycin and Flagyl onto his antibiotics or watch airway closely and call [facility] for ICU as he will need ENT and/or thoracic surgery involved. Dr. Hampton, as accepted the patient to the ICU [facility] agrees with the care described thus far. Medications Administered Discontinued Medications Generic Name Dose Route Start Last Admin Trade Name Freq PRN Reason Stop Dose Admin Fentanyl 100 mcg 06/18/25 18:11 06/18/25 18:27 Fentanyl Citrate/Pf 100 Mcg/2 Ml Vial IVPUSH 06/18/25 18:12 100 mcg ONCE ONE Administration Protocol Piperacillin Sod/Tazobactam 50 mls @ 100 mls/hr 06/18/25 18:09 06/18/25 18:41 Sod 3.375 gm/ Sodium Chloride IV 06/18/25 18:38 Infused ONCE ONE Infusion Sodium Chloride 1,905.09 mls @ 1,905.09 mls/hr 06/18/25 18:09 06/18/25 21:31 Ns 30 ml/kg infuse over 1 hr (1905.09 ml) 06/18/25 19:08 Infused IV Infusion .Q1H STA Vancomycin HCl 1,500 mg/ 500 mls @ 333.333 mls/hr 06/18/25 18:15 06/18/25 21:32 Sodium Chloride IV 06/18/25 19:44 Infused ONCE ONE Infusion Acetaminophen 1,000 mg in 100 mls @ 400 mls/hr 06/18/25 18:17 06/18/25 18:42 Ofirmev IV 06/18/25 18:31 Infused ONCE ONE Infusion Lactated Ringer's 1,000 mls @ 999 mls/hr 06/18/25 19:00 06/18/25 21:31 Lr IV 06/18/25 21:00 Infused .Q1H1M NERI Infusion Iohexol 100 ml 06/18/25 19:22 06/18/25 19:22 Iohexol 350 Mg/Ml 100 Ml Infus..Btl IV 06/18/25 19:23 75 ml ONCE ONE Administration Procedures Procedure Narrative Procedure Narrative: EMERGENCY ULTRASOUND INTERPRETATION-Limited Echocardiography [This study was ordered, performed, and interpreted by myself. The study reveals: Impression: NORMAL LV FUNCTION, NO RV DYSFUNCTION, NO PERICARDIAL EFFUSION, limited assessment of the valves but no grossly visualized vegetations [Emergent Cardiac for Indication: Views Used: PLAX, PSSA, A4, SX, IVC Pericardial Effusion/Tamponade Findings: NONE RV Dilation (> LV diam in 4ch apical): NONE Global LV Fxn: NORMAL IVC Dilation and Resp Variation: NORMAL Performed by: MD Mauro Images were stored CPT:37818] __ EMERGENCY ULTRASOUND INTERPRETATION-Limited Point of Care Venous (DVT) [This study was ordered, performed, and interpreted by myself. The study reveals: Impression: NO EVIDENCE OF left upper extremity DVT. I RECOMMENDED TO THE PATIENT REPEAT ULTRASOUND IN ONE WEEK IF SYMPTOMS PERSIST.] [Indication: Laterality: LEFT Axillary: -Full Compressibility: YES -Clot Seen: NO Brachial and basilic: -Full Compressibility: YES -Clot Seen: NO Antecubital brachial -Full Compressibility: YES -Clot Seen: NO Other: Left internal jugular and lateral/distal portions of the subclavian vein with limited views but appear patent with active venous flow Performed by: Zeus Wade MD Images were stored CPT: 35366] Medical Decision Making Medical Decision Making MDM Narrative: Medical Decision Makin-year-old male with IV drug use coming in with worsening chest pain centrally short of breath coughing. It looks quite ill and initially on arrival was hypotensive tachycardic has a fever of 1 0 fall. Patient has a swollen left upper extremity without signs of DVT but he probably has phlebitis and cellulitis no drainable collection on exam or bedside ultrasound. Echo without visualized vegetations or RV strain or pericardial effusion. The patient would benefit from comprehensive TTE or DEQUAN to exclude vegetations CT with likely septic emboli possibly lung abscesses and pneumonia. Cover broadly for sepsis with 30 cc/kg bolus given the hypotension and septic shock, Vancomycin Zosyn given blood cultures drawn. Lactate between 2 and 3 initially. Second blood pressure once the patient was in the room after triage sexually normotensive and he did not develop any additional hypotensive episodes. Aggressive fluid hydrate chin due to found dehydration or p.o. intake. Additionally patient has goiter on examination with low TSH. No known thyroid disorder in the past. May need to be sent out for inpatient endocrinology consultation as we do not have this here. Preliminary Favored Differential Diagnosis: Sepsis, PE, pneumonia, cellulitis, endocarditis, septic emboli, septic shock, goiter, thyroid disorder among additional considered etiologies Testing Interpreted Independently: ?See below for details Radiology or Lab testing Results Reviewed: ?CT: IMPRESSION: 1. Diffuse soft tissue interstitial edema of the anterior neck extending from retropharyngeal space to superior mediastinum; cellulitis of the anterior soft tissue neck extending through the superior mediastinum. 2. Thyroid hypertrophy with heterogeneous attenuation; goiter. 3. Centrilobular patchy subcentimeter nodularities in visualized upper lobes; pulmonary hematogenous infection sequela suspected. 4. Asymmetric thickening of the ventricular fold extending through the suprahyoid region; infection sequela. Squamous cell carcinoma can not be excluded. Short-term follow-up is suggested. This document has been electronically signed by: Chaka Alonzo MD on 06/18/2025 20:13:08 ___ IMPRESSION: 1. Small patchy areas of centrilobular ground-glass opacities in bilateral lungs ; bilateral pneumonias. Consider pulmonary hematogenous infection. Clinical correlation suggested. 2. Acute mediastinitis suspected. 3. Trace left pleural effusion. 4. No main or segmental pulmonary emboli identified. 5. Thyroid hypertrophy with heterogeneous attenuation; goiter. Nonemergent thyroid ultrasound correlation suggested. This document has been electronically signed by: Chaka Alonzo MD on 06/18/2025 20:03:29 Dictated By: Chaka Alonzo MD Consults: ?I discussed the case with [facility] ICU fellow who accepts the case. I discussed the case directly with the radiologist who read the neck CT who described supraglottic swelling at the posterior aspect of the vocal folds and agreed that there was likely superinfected or inflammatory process of the thyroid gland Proximally 20:40: Reexamined pt who does appear to have some nuchal rigidity. There is no stridor and he is on room air saturating over 95% no distress no drooling Independent Historians/External Chart Reviews: ?See below for details Social Determinants of Health Impacting MDM/Planning: ?See below for details Lab Data MDM Lab Attestation statement: I reviewed the patient's lab results. 06/18/25 18:08 06/18/25 18:08 Labs: Lab Results 06/18/25 06/18/25 06/18/25 Range/Units 18:08 18:24 21:14 WBC 14.0 H (4.8-10.8) X10*3/uL RBC 4.84 D (4.60-5.80) X10*6/uL Hgb 13.3 L D (14.0-18.0) g/dl Hct 39.9 L (42.0-52.0) % MCV 82.4 (80.0-98.0) fL MCH 27.5 (27.0-33.0) pg MCHC 33.3 (31.0-36.0) g/dl RDW 13.4 (11.0-16.0) % Plt Count 223 (160-400) X10*3/uL MPV 9.5 (9.4-12.4) fL Immature Gran % (Auto) 0.9 H (0.0-0.4) % Neut % (Auto) 86.0 H (45-73) % Lymph % (Auto) 6.8 L (20-40) % [place] % (Auto) 4.9 (2-11) % Eos % (Auto) 1.0 (0-4) % Baso % (Auto) 0.4 (0-2) % Lymph # (Auto) 1.0 L (1.2-4.9) X10*3/uL [place] # (Auto) 0.7 (0.1-1.2) X10*3/uL Eos # (Auto) 0.1 (0.0-0.4) X10*3/uL Baso # (Auto) 0.1 (0.0-0.2) X10*3/uL Abs Immat Gran (auto) 0.13 H (0.00-0.03) X10*3/uL Absolute Neuts (auto) 12.1 H (2.0-8.3) x10*3/uL Absolute Nucleated RBC 0.000 (0.0-0.012) X10*3/uL Nucleated RBC % (auto) 0.0 (0.0-0.2) /100WBC ESR 84 H (0-15) MM/HR PT 13.2 (11.2-13.5) SEC INR 1.1 (0.9-1.1) Sodium 127 L (135-145) mmol/L Potassium 4.8 D (3.3-5.1) mmol/L Chloride 94 L (96-108) mmol/L Carbon Dioxide 21 L (22-29) mmol/L Anion Gap 17 (12-20) BUN 20 H (9-16) mg/dL Creatinine 1.20 (0.5-1.4) mg/dL Estim Creat Clear Calc 74.9 Estimated GFR > 60 Random Glucose 124 H (60-115) mg/dL Lactic Acid 2.4 H* (0.5-2.0) mmol/L Lactic Acid F/U @ 2Hr (0.5-2.0) mmol/L Calcium 9.4 D (8.4-10.2) mg/dL Magnesium 2.0 (1.6-2.6) mg/dL Total Bilirubin 0.9 (0.0-1.0) mg/dL AST 79 H (5-37) U/L ALT 55 H (0-40) U/L Alkaline Phosphatase 86 (39-117) U/L Troponin I High Sens 20.3 (<3.5-35.0) ng/L C-Reactive Protein 32.84 H (< or = 0.50) mg/dL Total Protein 8.6 H (6.5-8.0) g/dL Albumin 3.7 (3.5-5.0) g/dL TSH 0.28 L (0.32-4.0) uIU/mL Free T4 1.79 (0.71-1.85) ng/dL 11/23/25 Range/Units 21:15 WBC (4.8-10.8) X10*3/uL RBC (4.60-5.80) X10*6/uL Hgb (14.0-18.0) g/dl Hct (42.0-52.0) % MCV (80.0-98.0) fL MCH (27.0-33.0) pg MCHC (31.0-36.0) g/dl RDW (11.0-16.0) % Plt Count (160-400) X10*3/uL MPV (9.4-12.4) fL Immature Gran % (Auto) (0.0-0.4) % Neut % (Auto) (45-73) % Lymph % (Auto) (20-40) % [place] % (Auto) (2-11) % Eos % (Auto) (0-4) % Baso % (Auto) (0-2) % Lymph # (Auto) (1.2-4.9) X10*3/uL [place] # (Auto) (0.1-1.2) X10*3/uL Eos # (Auto) (0.0-0.4) X10*3/uL Baso # (Auto) (0.0-0.2) X10*3/uL Abs Immat Gran (auto) (0.00-0.03) X10*3/uL Absolute Neuts (auto) (2.0-8.3) x10*3/uL Absolute Nucleated RBC (0.0-0.012) X10*3/uL Nucleated RBC % (auto) (0.0-0.2) /100WBC ESR (0-15) MM/HR PT (11.2-13.5) SEC INR (0.9-1.1) Sodium (135-145) mmol/L Potassium (3.3-5.1) mmol/L Chloride (96-108) mmol/L Carbon Dioxide (22-29) mmol/L Anion Gap (12-20) BUN (9-16) mg/dL Creatinine (0.5-1.4) mg/dL Estim Creat Clear Calc Estimated GFR Random Glucose (60-115) mg/dL Lactic Acid (0.5-2.0) mmol/L Lactic Acid F/U @ 2Hr 1.4 (0.5-2.0) mmol/L Calcium (8.4-10.2) mg/dL Magnesium (1.6-2.6) mg/dL Total Bilirubin (0.0-1.0) mg/dL AST (5-37) U/L ALT (0-40) U/L Alkaline Phosphatase (39-117) U/L Troponin I High Sens (<3.5-35.0) ng/L C-Reactive Protein (< or = 0.50) mg/dL Total Protein (6.5-8.0) g/dL Albumin (3.5-5.0) g/dL TSH (0.32-4.0) uIU/mL Free T4 (0.71-1.85) ng/dL Critical Care Time Critical Care Time Critical Care Time: Yes Total Critical Care Time: 130 Attestation: ED Critical Care: Severe sepsis with transient septic shock. Airway involving retropharyngeal abscess and septic pulmonary emboli Authorized and Performed by: Zeus Wade MD Total critical care time: Approximately 130 min Due to a high probability of clinically significant, life threatening deterioration, the patient required my highest level of preparedness to intervene emergently and I personally spent this critical care time directly and personally managing the patient. This critical care time included obtaining a history; examining the patient; pulse oximetry; ordering and review of studies; arranging urgent treatment with development of a management plan; evaluation of patient's response to treatment; frequent reassessment; and, discussions with other providers. This critical care time was performed to assess and manage the high probability of imminent, life-threatening deterioration that could result in multi-organ failure. It was exclusive of separately billable procedures and treating other patients and teaching time. Discharge Plan Discharge Clinical Impression: Abscess, retropharyngeal, Acute septic pulmonary embolism Patient Disposition: [facility] Transfer Details: Transfer for ENT/thoracic/impending potential airway compromise [facility] ICU accepted. Working diagnosis: Retropharyngeal abscess and supraglottic/ventricular fold edema/mediastinitis likely secondary to IV drug injection in the neck possibly superinfection of the thyroid and/or goiter, septic pulmonary emboli. Received 4 L crystalloid transiently hypotensive but responded to fluid. Received Zosyn, vancomycin, clindamycin, Flagyl. Prescriptions: No Action gabapentin 600 mg tablet 600 mg PO TID buprenorphine-naloxone 8-2 mg film 1 film sublingual DAILY Sublocade 300 mg/1.5 mL solution, extended rel syringe 300 mg SUBCUT QMONTH amoxicillin-pot clavulanate 500-125 mg Tablet 1 tab PO Q8H Qty: 30 0RF amlodipine 2.5 mg tablet 2.5 mg PO DAILY Qty: 30 0RF Interventions: Acute Care Transfer Worksheet (ED) Last Done: 06/18/25 21:39 Discharge Date/Time: 06/18/25 21:46 Print Language: Macedonian
[2025-06-18 18:17] LABS: MANUAL DIFF FLAG NO
[2025-06-18 18:19] LABS: Hematocrit 39.9 % (42.0-52.0); Hemoglobin 13.3 g/dl (14.0-18.0); Imm Gran Abs Auto 0.13 X10*3/uL (0.00-0.03); Imm Gran Pct Auto 0.9 % (0.0-0.4); Lymphocytes Absolute Auto 1.0 X10*3/uL (1.2-4.9); Mean Corpuscular HGB Conc 33.3 g/dl (31.0-36.0); Mean Corpuscular Hemoglobin 27.5 pg (27.0-33.0); Mean Corpuscular Volume 82.4 fL (80.0-98.0); NRBC Abs Auto 0.000 X10*3/uL (0.0-0.012); NRBC Pct Auto 0.0 /100WBC (0.0-0.2); Platelet Count 223 X10*3/uL (160-400); Red Blood Count 4.84 X10*6/uL (4.60-5.80); White Blood Count 14.0 X10*3/uL (4.8-10.8)
[2025-06-18 18:39] LABS: Alanine Aminotransferase 55 U/L (0-40); Albumin Level 3.7 g/dL (3.5-5.0); Alkaline Phosphatase 86 U/L (39-117); Anion Gap 17 (12-20); Aspartate Amino Transferase 79 U/L (5-37); Blood Urea Nitrogen 20 mg/dL (9-16); Calcium 9.4 mg/dL (8.4-10.2); Carbon Dioxide 21 mmol/L (22-29); Chloride 94 mmol/L (96-108); Creatinine Clr Calc Pharmacy 74.9; Estimated Glomerular Filt Rate > 60; Magnesium 2.0 mg/dL (1.6-2.6); Potassium 4.8 mmol/L (3.3-5.1); Sodium 127 mmol/L (135-145); Total Protein 8.6 g/dL (6.5-8.0)
[2025-06-18 18:44] LABS: Troponin-I High Sensitivity 20.3 ng/L (<3.5-35.0)
--- OUTSIDE RECORDS SUMMARY | 2025-06-18 18:50 | XMS_ITS | Clinical Summary ---
Author Organization Formerly [facility] Facility Address [address] [place] [id number] Care Team Providers Care Out Patient Therapist Name Role Phone Unavailable Primary Care Provider Unavailabl e Allergies Active Allergy Reactions Criticality Noted Date Comments Sulfadiazine 02/25/2022 Other reaction(s): rash Medications gabapentin (NEURONTIN) 300 MG capsule Take 300 mg by mouth in the morning and 300 mg at noon and 300 mg in the evening. 01/28/2022 Active hydroxychloroqu ine (PLAQUENIL) 200 MG tablet Take 200 mg by mouth 1 (one) time each day 01/06/2022 Active ibuprofen (ADVIL,MOTRIN) 800 MG tablet Take 800 mg by mouth every 6 (six) to 8 (eight) hours if needed 12/27/2021 Active Active Problems Problem Noted Date Diagnosed Date History of drug abuse 02/25/2022 Hypertensive disorder 02/25/2022 Neuralgia 02/25/2022 Glomerular disease in systemic lupus erythematos us 02/25/2022 History of vasculitis 02/10/2022 Injury of ankle 02/10/2022 Neuropathy 02/10/2022 Immunizations Immunization Administration Dates Next Due Tdap 01/22/2018 Social History Tobacco Use Types Packs/Day Years Used Date Smoking Tobacco: Every Day Cigarettes Smokeless Tobacco: Never Tobacco Cessation:Ready to Q uit: Not Asked; Counseling Given: Not Answered Alcohol Use Standard Drinks/Week Comments Yes 0 (1 standard drink = 0.6 oz pur e alcohol) Sex and Gender Information Value Date Recorded Sex Assigned at Not on file Legal Sex Male 3:00 PM EDT Gender Identity Not on file Sexual Orientation Not on file Last Filed Vital Signs Vital Sign Reading Time Taken Comments Blood Pressure 112/90 02/25/2022 3:51 PM EDT Pulse 120 02/25/2022 3:51 PM EDT Temperature - - Respiratory Rate - - Oxygen Saturation 98% 02/25/2022 3:51 PM EDT Inhaled Oxygen Concentration - - Weight 75.8 kg (167 lb) 02/25/2022 3:51 PM EDT Height 182.9 cm (6') 02/25/2022 3:51 PM EDT Body Mass Index 22.65 02/25/2022 3:51 PM EDT Plan of Treatment Health Maintenance Due Date Last Done Comments Hepatitis B Vaccine (1 of 3 - 19+ 3-dose series) 02/28 Pneumococcal Vaccine: Peds ( 0 to 5 Years) and At-Risk Patients (6 to 49 Years) (1 of 2 - PCV) 2006 Influenza Vaccine (#1) 2025 Insurance [facility] [place] Medicaid [place] [facility] [place]
--- OUTSIDE RECORDS SUMMARY | 2025-06-18 18:50 | XMS_ITS | Clinical Summary ---
Author Organization [facility] Address [address] [place] [address] Phone Care Team Providers Care Mold Polisher Name Role Phone BuitragoEarnestine SONIA Primary Care Provider [phone] Allergies Active Allergy Reactions Criticality Noted Date Comments Doxycycline GI intolerance Medium 04/05/2025 Sulfa (Sulfonamide Antibiotics) 03/27 Medications amLODIPine (NORVASC) 2.5 mg tablet Take 1 tablet (2.5 mg total) by mouth 1 (one) time each day. 5 Active methotrexate 2.5 mg tablet Take 1 tablet (2.5 mg total) by mouth 1 (one) time per week 5 Active mupirocin (BACTROBAN) 2 % ointmentIndicat ions:Folliculit is of scalp,Skin ulcer of scalp, limited to breakdown of skin ([facility] V24, [facility] V28) Apply topically 1 (one) time each day. 22 g 2 5 05/28/20 25 Active Problems Problem Noted Date Diagnosed Date Chronic venous hypertension (idiopathic) with ulcer of left lower extremity (CODE) ([facility] V24, [facility] V28) 04/12/2025 Non-pressure chronic ulcer o f other part of left lower leg with fat layer exposed ([facility] V24, [facility] V28) 04/12/2025 Encounters Date Type Department Care Team Description 05/26/2025 1:15 PM EDT Office Visit [facility] [address] [place] [phone] Jose Guadalupe Yates PA Chronic venous hypertension (idiopathic) with ulcer of left lower extremity (CODE) ([facility]/HCC V24, CMS/HCC V28) (Primary Dx); Non-pressure chronic ulcer of other part of left lower leg with fat layer exposed (CMS/HCC V24, CMS/HCC V28) 05/12/2025 1:00 PM EDT Office Visit [facility] [address] [place] [phone] Jose Guadalupe Yates PA Chronic venous hypertension (idiopathic) with ulcer of left lower extremity (CODE) (CMS/HCC V24, CMS/HCC V28) (Primary Dx); Non-pressure chronic ulcer of other part of left lower leg with fat layer exposed (CMS/HCC V24, CMS/HCC V28); Skin ulcer of scalp, limited to breakdown of skin (CMS/HCC V24, CMS/HCC V28) 04/28/2025 9:00 AM EDT Office Visit [facility] [address] [place] [phone] Jose Guadalupe Yates PA Chronic venous hypertension (idiopathic) with ulcer of left lower extremity (CODE) (CMS/HCC V24, CMS/HCC V28) (Primary Dx); Non-pressure chronic ulcer left lower leg, limited to breakdown skin (CMS/HCC V24, CMS/HCC V28); Folliculitis of scalp; Skin ulcer of scalp, limited to breakdown of skin (CMS/HCC V24, CMS/HCC V28) 04/21/2025 1:00 PM EDT Office Visit [facility] [address] [place] [phone] Jose Guadalupe Yates PA Chronic venous hypertension (idiopathic) with ulcer of left lower extremity (CODE) ([facility]/HCC V24, CMS/HCC V28) (Primary Dx); Non-pressure chronic ulcer left lower leg, limited to breakdown skin (CMS/HCC V24, CMS/HCC V28) 04/12/2025 2:00 PM EDT Office Visit [facility] [address] [place] [phone] Jose Guadalupe Yates PA Chronic venous hypertension (idiopathic) with ulcer of left lower extremity (CODE) ([facility] V24, [facility] V28) (Primary Dx); Non-pressure chronic ulcer of other part of left lower leg with fat layer exposed ([facility] V24, [facility] V28) 04/05/2025 12:45 PM EDT Office Visit [facility] [address] [place] [phone] Jose Guadalupe Yates PA Chronic venous hypertension (idiopathic) with ulcer of left lower extremity (CODE) ([facility] V24, [facility] V28) (Primary Dx); Non-pressure chronic ulcer of other part of left lower leg with fat layer exposed ([facility] V24, [facility] V28) from Last 3 Months Surgical History Surgery Date Site/Laterality Comments FOOT SURGERY 07/25/2022 Left bone removal Medical History Medical History Date Comments Vasculitis ([facility] V24) Hypertension Lupus erythematosus Family History Medical History Relation Name Comments Cancer Father Relation Name Status Comments Father Social History Tobacco Use Types Packs/Day Years Used Date Smoking Tobacco: Former Cigarettes Smokeless Tobacco: Never Comments:Plans to resume smo david once out of facility Alcohol Use Standard Drinks/Week Comments Not Currently 0 (1 standard drink = 0.6 oz pur e alcohol) Sex and Gender Information Value Date Recorded Sex Assigned at Not on file Legal Sex Male 9:05 PM EST Gender Identity Not on file Sexual Orientation Not on file Obstetrics History Last Filed Vital Signs Vital Sign Reading Time Taken Comments Blood Pressure 139/97 05/26/2025 1:32 PM EDT Pulse 93 05/26/2025 1:32 PM EDT Temperature 36 C (96.8 F) 05/26/2025 1:32 PM EDT Respiratory Rate 17 05/12/2025 1:12 PM EDT Oxygen Saturation 97% 05/26/2025 1:32 PM EDT Inhaled Oxygen Concentration - - Weight 72.6 kg (160 lb) 09/28/2023 4:16 PM EST Height 182.9 cm (6') 09/28/2023 4:16 PM EST Body Mass Index 21.7 09/28/2023 4:16 PM EST Plan of Treatment Health Maintenance Due Date Last Done Comments COVID-19 Vaccine (#1) 02/29/1992 Hepatitis A Vaccines (1 of 2 - Risk 2-dose series) 2006 Hepatitis B Vaccines (1 of 3 - 19+ 3-dose series) 2006 HPV Vaccines (1 - 3-dose SCD M series) 2014 Cholesterol Screening (Lipid Panel) 06/28/2022 HIV Screening 06/28/2022 Hepatitis C Screening 06/28/2022 Medicare Annual Wellness Visit 06/28/2022 Social Influencers of Health Screening 06/28/2022 Influenza Vaccine (#1) 2025 05/06/2021 Hypertension/CHF/CAD Annual BMP Blood Test 04/05/2025 DTaP,Tdap,and Td Vaccines (2 - Td or Tdap) 01/23/2028 01/22/2018 RSV Immunization Adult Patie nts (1 - 1-dose 75+ series) 2062 Depression Screening Completed 04/05/2025 HIB Vaccines Aged Out No longer eligi ble based on patient's age to complete this topic IPV Vaccines Aged Out No longer eligi ble based on patient's age to complete this topic MMR Vaccines Aged Out No longer eligi ble based on patient's age to complete this topic Meningococcal ACWY Vaccine Aged Out N o longer eligible based on patient's age to complete this topic Meningococcal B Vaccine Aged Out No l onger eligible based on patient's age to complete this topic Pneumococcal Vaccine: Pediat rics (0 to 5 Years) and At-Risk Patients (6 to 49 Years) Aged Out No longer eligi ble based on patient's age to complete this topic RSV Immunization Patients Un matilde 20 months Aged Out No longer eligible b ased on patient's age to complete this topic Varicella Vaccines Aged Out No longer eligible based on patient's age to complete this topic Goals Goal Patient Goal Type Associated Problems Recent Progress Patient-Stated? Author Decrease Wound Volume by X% by date (in notes) Care Plan Impaired Tissue On track( 025 1:22 PM EDT) No Desirae Moss RN Patient and Caregiver Understand Wound Care Education Care Plan Impaired Tissue On track( 025 1:22 PM EDT) No Desirae Moss RN Wound volume breakdown reduced by X% by week 4 Care Plan Impaired Tissue No Desirae Moss RN Wound volume breakdown reduced by X% by week 8 Care Plan Impaired Tissue No Desirae Moss RN Wound volume breakdown reduced by X% by week 12 Care Plan Impaired Tissue No Desirae Moss RN Quit using tobacco (cigarettes, smokeless, etc) Care Plan Education needed on impact of smoking on wound Desirae Engel RN Reduce tobacco use (cigarettes, smokeless, etc) Care Plan Education needed on impact of smoking on wound Desirae Engel RN Decrease Wound Volume by X% by date (in notes) Care Plan Education needed on impact of smoking on wound Desirae Engel RN Patient and Caregiver Understand Wound Care Education Care Plan Education needed related to ulceration/compr omised skin integrity. No Desirae Moss RN Procedures Procedure Name Priority Date/Time Associated Diagnosis Comments DEBRIDEMENT Routine 05/12/2025 1:00 PM EDT Chronic venous hypertension (idiopathic) with ulcer of left lower extremity (CODE) (CMS/HCC V24, CMS/HCC V28) Non-pressure chronic ulcer of other part of left lower leg with fat layer exposed (CMS/HCC V24, CMS/HCC V28) DEBRIDEMENT Routine 04/28/2025 9:00 AM EDT Chronic venous hypertension (idiopathic) with ulcer of left lower extremity (CODE) (CMS/HCC V24, CMS/HCC V28) Non-pressure chronic ulcer left lower leg, limited to breakdown skin (CMS/HCC V24, CMS/HCC V28) DEBRIDEMENT Routine 04/21/2025 1:00 PM EDT Chronic venous hypertension (idiopathic) with ulcer of left lower extremity (CODE) (CMS/HCC V24, CMS/HCC V28) Non-pressure chronic ulcer left lower leg, limited to breakdown skin (CMS/HCC V24, CMS/HCC V28) DEBRIDEMENT Routine 04/12/2025 2:00 PM EDT Chronic venous hypertension (idiopathic) with ulcer of left lower extremity (CODE) (CMS/HCC V24, CMS/HCC V28) Non-pressure chronic ulcer of other part of left lower leg with fat layer exposed (CMS/HCC V24, CMS/HCC V28) DEBRIDEMENT Routine 04/05/2025 12:45 PM EDT Chronic venous hypertension (idiopathic) with ulcer of left lower extremity (CODE) ([facility] V24, [facility] V28) Non-pressure chronic ulcer of other part of left lower leg with fat layer exposed ([facility] V24, [facility] V28) from Last 3 Months Results * Debridement Diabetic Ulcer Left;Medial;Lower Leg (05/12/2025 1:00 PM EDT) Zhang Greco MD - 05/12/2025 1:00 PM EDT Zhang Roasles MD 05/17/2025 8:38 AM Debridement Diabetic Ulcer Left;Medial;Lower Leg Performed by: ADA Wayne Authorized by: ADA Wayne Associated wounds: Wound Diabetic Ulcer 04/05/25 Leg Left;Medial;Lower Consent: Consent obtained: Verbal Consent given by: Patient Risks discussed: Yes Time out: Immediately prior to the procedure a time out was called Debridement Details: Performed by: ADA Type: surgical Level: subcutaneous tissue Pain control: Lidocaine 4% Severity of Tissue Pre Debridement: Fat layer exposed Severity of Tissue Post Debridement: Fat layer exposed Time taken: 05/12/2025 1:13 PM Length (cm): 3 Width (cm): 1.3 Depth (cm): 0.1 Area (cm^2): 3.06 Time taken: 05/12/2025 1:14 PM Length (cm): 3 Width (cm): 1.3 Depth (cm): 0.1 Percent Debrided (%): 75 Surface Area (cm^2): 3.9 Area Debrided (cm^2): 2.93 Volume (cm^3): 0.39 Tissue and other material debrided: dermis, epidermis and subcutaneous tissue Devitalized tissue debrided: biofilm, exudate, fibrin and slough Instrument: Curette Amount of bleeding: none Hemostasis obtained with: Not applicable Procedural pain: 0 Post-procedural pain: 0 Response to treatment: Procedure was tolerated well us Jose Guadalupe CABALLERO IN CLINIC/BEDSIDE ORDERABLE S Final Result * Debridement Diabetic Ulcer Left;Medial;Lower Leg (04/28/2025 9:00 AM EDT) Narrative Zhang Rosales MD - 04/28/2025 9:00 AM EDT Zhang Rosales MD 05/04/2025 3:00 PM Debridement Diabetic Ulcer Left;Medial;Lower Leg Performed by: ADA Wayne Authorized by: ADA Wayne Associated wounds: Wound Diabetic Ulcer 04/05/25 Leg Left;Medial;Lower Consent: Consent obtained: Verbal Consent given by: Patient Risks discussed: Yes Time out: Immediately prior to the procedure a time out was called Debridement Details: Performed by: ADA Type: selective Pain control: Lidocaine 5% Severity of Tissue Pre Debridement: Limited to breakdown of skin Severity of Tissue Post Debridement: Limited to breakdown of skin Time taken: 04/28/2025 9:15 AM Length (cm): 0.7 Width (cm): 1.8 Depth (cm): 0.1 Area (cm^2): 1.26 Time taken: 04/28/2025 9:16 AM Length (cm): 0.7 Width (cm): 1.8 Depth (cm): 0.1 Percent Debrided (%): 100 Surface Area (cm^2): 1.26 Area Debrided (cm^2): 1.26 Volume (cm^3): 0.13 Tissue and other material debrided: dermis and epidermis Devitalized tissue debrided: exudate and fibrin Instrument: Curette Amount of bleeding: none Hemostasis obtained with: Not applicable Procedural pain: Insensate Post-procedural pain: Insensate Response to treatment: Procedure was tolerated well Jose Guadalupe CABALLERO IN CLINIC/BEDSIDE ORDERABLE S Final Result * Debridement Diabetic Ulcer Left;Medial;Lower Leg (04/21/2025 1:00 PM EDT) Zhang Greco MD - 04/21/2025 1:00 PM EDT Zhang Rosales MD 05/04/2025 9:27 AM Debridement Diabetic Ulcer Left;Medial;Lower Leg Performed by: ADA Wayne Authorized by: ADA Wayne Associated wounds: Wound Diabetic Ulcer 04/05/25 Leg Left;Medial;Lower Consent: Consent obtained: Verbal Consent given by: Patient Risks discussed: Yes Time out: Immediately prior to the procedure a time out was called Debridement Details: Performed by: ADA Type: selective Pain control: Lidocaine 5% Severity of Tissue Pre Debridement: Limited to breakdown of skin Severity of Tissue Post Debridement: Limited to breakdown of skin Time taken: 04/21/2025 1:19 PM Length (cm): 0.8 Width (cm): 0.3 Depth (cm): 0.1 Area (cm^2): 0.24 Time taken: 04/21/2025 1:20 PM Length (cm): 0.8 Width (cm): 0.3 Depth (cm): 0.1 Percent Debrided (%): 75 Surface Area (cm^2): 0.24 Area Debrided (cm^2): 0.18 Volume (cm^3): 0.02 Tissue and other material debrided: dermis and epidermis Devitalized tissue debrided: clots and fibrin Instrument: Curette Amount of bleeding: none Hemostasis obtained with: Not applicable Procedural pain: Insensate Post-procedural pain: Insensate Response to treatment: Procedure was tolerated well us Jose Guadalupe CABALLERO IN CLINIC/BEDSIDE ORDERABLE S Final Result * Debridement Diabetic Ulcer Left;Medial;Lower Leg (04/12/2025 2:00 PM EDT) Zhang Greco MD - 04/12/2025 2:00 PM EDT ADA Wayne 04/12/2025 2:27 PM Debridement Diabetic Ulcer Left;Medial;Lower Leg Performed by: ADA Wayne Authorized by: ADA Wayne Associated wounds: Wound Diabetic Ulcer 04/05/25 Leg Left;Medial;Lower Consent: Consent obtained: Verbal Consent given by: Patient Risks discussed: Yes Time out: Immediately prior to the procedure a time out was called Debridement Details: Performed by: ADA Type: surgical Level: subcutaneous tissue Pain control: Lidocaine 4% Severity of Tissue Pre Debridement: Fat layer exposed Severity of Tissue Post Debridement: Fat layer exposed Length (cm): 3 Width (cm): 1.4 Depth (cm): 0.1 Area (cm^2): 4.2 Length (cm): 3 Width (cm): 1.4 Depth (cm): 0.1 Percent Debrided (%): 75 Surface Area (cm^2): 4.2 Area Debrided (cm^2): 3.15 Volume (cm^3): 0.42 Tissue and other material debrided: dermis, epidermis and subcutaneous tissue Devitalized tissue debrided: biofilm, exudate, fibrin and slough Instrument: Curette Amount of bleeding: none Hemostasis obtained with: Not applicable Procedural pain: 0 Post-procedural pain: 0 Response to treatment: Procedure was tolerated well Jose Guadalupe CABALLERO IN CLINIC/BEDSIDE ORDERABLE S Final Result * Debridement Diabetic Ulcer Left;Medial;Lower Leg (04/05/2025 12:45 PM EDT) Zhang Greco MD - 04/05/2025 12:45 PM EDT ADA Wayne 04/05/2025 1:38 PM Debridement Diabetic Ulcer Left;Medial;Lower Leg Performed by: ADA Wayne Authorized by: ADA Wayne Associated wounds: Wound Diabetic Ulcer 04/05/25 Leg Left;Medial;Lower Consent: Consent obtained: Verbal Consent given by: Patient Risks discussed: Yes Time out: Immediately prior to the procedure a time out was called Debridement Details: Performed by: ADA Type: surgical Level: subcutaneous tissue Pain control: Lidocaine 4% Severity of Tissue Pre Debridement: Fat layer exposed Severity of Tissue Post Debridement: Fat layer exposed Time taken: 04/05/2025 12:57 PM Length (cm): 4 Width (cm): 2.1 Depth (cm): 0.2 Area (cm^2): 8.4 Time taken: 04/05/2025 12:58 PM Length (cm): 4 Width (cm): 2.1 Depth (cm): 0.2 Percent Debrided (%): 100 Surface Area (cm^2): 8.4 Area Debrided (cm^2): 8.4 Volume (cm^3): 1.68 Tissue and other material debrided: dermis, epidermis and subcutaneous tissue Devitalized tissue debrided: biofilm, exudate, fibrin and slough Instrument: Curette Amount of bleeding: none Hemostasis obtained with: Not applicable Procedural pain: 0 Post-procedural pain: 0 Response to treatment: Procedure was tolerated well Jose Guadalupe CABALLERO IN CLINIC/BEDSIDE ORDERABLE S Final Result from Last 3 Months Additional Health Concerns Active Problems Noted Date Diagnosed Date Impaired Tissue 04/05/2025 Education needed on impact of smoking on wound 0 04/05/2025 Education needed related to ulceration/compromised skin integrity. 04/05/2025 Insurance MEDICARE MEDICAID - [place] Care Teams Mold Polisher Relationship Specialty Start Date End Date Earnestine Buitrago NP [address] [place] [phone] PCP - General 06/27/22
--- OUTSIDE RECORDS SUMMARY | 2025-06-18 18:50 | XMS_ITS ---
Care Plan Created on: June 18, 2025 Eduardreinajayson Pernell : 1985 Sex: Male Author Organization [facility] Address [address] [place] [address] Phone Care Team Providers Care Pressure Testing Technician Name Role Phone IftikharEarnestine Miriammarlen SONIA Primary Care Provider [phone] Active Problems Problem Noted Date Diagnosed Date Chronic venous hypertension (idiopathic) with ulcer of left lower extremity (CODE) ([facility] V24, [facility] V28) 04/12/2025 Non-pressure chronic ulcer o f other part of left lower leg with fat layer exposed ([facility] V24, [facility] V28) 04/12/2025 Additional Health Concerns Active Problems Noted Date Diagnosed Date Impaired Tissue 04/05/2025 Education needed on impact of smoking on wound 0 04/05/2025 Education needed related to ulceration/compromised skin integrity. 04/05/2025 Goals Goal Patient Goal Type Associated Problems Recent Progress Patient-Stated? Author Decrease Wound Volume by X% by date (in notes) Care Plan Impaired Tissue On track( 1:22 PM EDT) No Desirae Moss RN Patient and Caregiver Understand Wound Care Education Care Plan Impaired Tissue On track( 025 1:22 PM EDT) Desirae Engel RN Wound volume breakdown reduced by X% by week 4 Care Plan Impaired Tissue No Desirae Moss RN Wound volume breakdown reduced by X% by week 8 Care Plan Impaired Tissue No Dseirae Moss RN Wound volume breakdown reduced by X% by week 12 Care Plan Impaired Tissue No Desirae Moss RN Quit using tobacco (cigarettes, smokeless, etc) Care Plan Education needed on impact of smoking on wound No Wurszt, Desirae E, RN Reduce tobacco use (cigarettes, smokeless, etc) Care Plan Education needed on impact of smoking on wound No Desirae Moss RN Decrease Wound Volume by X% by date (in notes) Care Plan Education needed on impact of smoking on wound No Desirae Moss RN Patient and Caregiver Understand Wound Care Education Care Plan Education needed related to ulceration/compr omised skin integrity. No Desirae Moss RN Interventions Care Plan Interventions Intervention Entry Date Outcome Provide caregiver with wound care procedure information 04/05/2025 Educate caregiver on proper wound care procedures 04/05/2025 Give provider list of wound care supplies 04/05/2025 Refill wound care supplies 04/05/2025 Send Wound Care Supplies 04/05/2025 Give provider list of wound care supplies 04/05/2025 Refill wound care supplies 04/05/2025 Send Wound Care Supplies 04/05/2025 Provide caregiver with wound care procedure information 04/05/2025 Educate caregiver on proper wound care procedures 04/05/2025 Document patient eligibility for HBO 04/05/2025 Assess patient for HBO treatment 04/05/2025 Record wound depth 04/05/2025 Record total wound area 04/05/2025 Measure wound progress 04/05/2025 Create an action plan identifying patient strengths and supports 04/05/2025 Establish quit date with patient 04/05/2025 Discuss prior cessation attempts 04/05/2025 Discuss preferred method of cessation and plan 04/05/2025 Discuss barriers to smoking cessation 04/05/2025 Discuss smoking status with patient 04/05/2025 Create an action plan identifying patient strengths and supports 04/05/2025 Establish quit date with patient 04/05/2025 Discuss prior cessation attempts 04/05/2025 Discuss preferred method of cessation and plan 04/05/2025 Discuss barriers to smoking cessation 04/05/2025 Discuss smoking status with patient 04/05/2025 Provide caregiver with wound care procedure information 04/05/2025 Educate caregiver on proper wound care procedures 04/05/2025 Document patient eligibility for HBO 04/05/2025 Assess patient for HBO treatment 04/05/2025 Record wound depth 04/05/2025 Record total wound area 04/05/2025 Measure wound progress 04/05/2025 Provide caregiver with wound care procedure information 04/05/2025 Educate caregiver on proper wound care procedures 04/05/2025 Document patient eligibility for HBO 04/05/2025 Assess patient for HBO treatment 04/05/2025 Record wound depth 04/05/2025 Record total wound area 04/05/2025 Measure wound progress 04/05/2025 Provide caregiver with wound care procedure information 04/05/2025 Educate caregiver on proper wound care procedures 04/05/2025 Document patient eligibility for HBO 04/05/2025 Assess patient for HBO treatment 04/05/2025 Record wound depth 04/05/2025 Record total wound area 04/05/2025 Measure wound progress 04/05/2025 Provide caregiver with wound care procedure information 04/05/2025 Educate caregiver on proper wound care procedures 04/05/2025 Give provider list of wound care supplies 04/05/2025 Refill wound care supplies 04/05/2025 Send Wound Care Supplies 04/05/2025 Give provider list of wound care supplies 04/05/2025 Refill wound care supplies 04/05/2025 Send Wound Care Supplies 04/05/2025 Provide caregiver with wound care procedure information 04/05/2025 Educate caregiver on proper wound care procedures 04/05/2025 Record wound depth 04/05/2025 Record total wound area 04/05/2025 Measure wound progress 04/05/2025 Related Goals and Interventions Goal Associated Intervent ions Decrease Wound Volume by X% by date (in notes) Give provider list of wound care supplie s; Refill wound care supplies; Send Wound Care Supplies; Provide caregiver with wound care procedure information; Educate caregiver on proper wound care procedures; Record wound depth; Record total wound area; Measure wound progress Patient and Caregiver Unders tand Wound Care Education Provide caregiver with wound care proced ure information; Educate caregiver on proper wound care procedures; Give provider list of wound care supplies; Refill wound care supplies; Send Wound Care Supplies Wound volume breakdown reduc ed by X% by week 4 Provide caregiver with wound care proced ure information; Educate caregiver on proper wound care procedures; Document patient eligibility for HBO; Assess patient for HBO treatment; Record wound depth; Record total wound area; Measure wound progress Wound volume breakdown reduc ed by X% by week 8 Provide caregiver with wound care proced ure information; Educate caregiver on proper wound care procedures; Document patient eligibility for HBO; Assess patient for HBO treatment; Record wound depth; Record total wound area; Measure wound progress Wound volume breakdown reduc ed by X% by week 12 Provide caregiver with wound care proced ure information; Educate caregiver on proper wound care procedures; Document patient eligibility for HBO; Assess patient for HBO treatment; Record wound depth; Record total wound area; Measure wound progress Quit using tobacco (cigarett es, smokeless, etc) Create an action plan identifying patien t strengths and supports; Establish quit date with patient; Discuss prior cessation attempts; Discuss preferred method of cessation and plan; Discuss barriers to smoking cessation; Discuss smoking status with patient Reduce tobacco use (cigarett es, smokeless, etc) Create an action plan identifying patien t strengths and supports; Establish quit date with patient; Discuss prior cessation attempts; Discuss preferred method of cessation and plan; Discuss barriers to smoking cessation; Discuss smoking status with patient Decrease Wound Volume by X% by date (in notes) Give provider list of wound care supplie s; Refill wound care supplies; Send Wound Care Supplies; Provide caregiver with wound care procedure information; Educate caregiver on proper wound care procedures; Document patient eligibility for HBO; Assess patient for HBO treatment; Record wound depth; Record total wound area; Measure wound progress Patient and Caregiver Unders tand Wound Care Education Provide caregiver with wound care proced ure information; Educate caregiver on proper wound care procedures; Give provider list of wound care supplies; Refill wound care supplies; Send Wound Care Supplies
[2025-06-18 19:12] LABS: Erythrocyte Sedimentation Rate 84 MM/HR (0-15)
[2025-06-18] MEDS: iohexoL 350 MG/ML 100 ML INFUS..BTL IV (19:22)
[2025-06-18] MEDS: Lactated Ringers 1,000 ML 999 ML IV (19:27)
[2025-06-18 19:36] LABS: Free T4 (Free Thyroxine) 1.79 ng/dL (0.71-1.85)
[2025-06-18 20:12] LABS: Reflex Lactate? Lactic Acid Added
[2025-06-18 21:34] LABS: ~Lactic Acid-LAB USE ONLY 1.4 mmol/L (0.5-2.0)
[2025-06-18 21:45] LABS: INTERNATIONAL NORM RATIO 1.1 (0.9-1.1); Prothrombin Time 13.2 SEC (11.2-13.5)
== END 2025-06-18 21:46 | disposition short-term general hospital (02) ==
PROVIDERS: Physician Assistant Medical; Emergency Provider Emergency Medicine; PCP Nurse Practitioner Family
DX: J39.0 Retropharyngeal and parapharyngeal abscess (principal); I26.01 Septic pulmonary embolism with acute cor pulmonale; R07.89 Other chest pain; R06.02 Shortness of breath; M25.572 Pain in left ankle and joints of left foot; R11.0 Nausea; F17.210 Nicotine dependence, cigarettes, uncomplicated; Z79.899 Other long term (current) drug therapy
CPT/HCPCS: 36415; 70491; 71275; 73600; 80053; 83605; 83735; 84439; 84443; 84484; 85025; 85610; 85652; 86140; 87040; 87077; 87186; 87205; 93005; 96361; 96374; 96375; 99285; J0131; J2543; J3010; J3374; J7120; Q9967

== ENCOUNTER → 2025-06-18 17:35 | Outpatient (BNV) | payer MEDICARE, MEDICAID, SELFPAY | PROVIDERS: Emergency Provider Emergency Medicine; PCP Nurse Practitioner Family; Visit Provider Internal Medicine Cardiovascular Disease | DX: R00.0 Tachycardia, unspecified (principal) | CPT/HCPCS: 93010 ==

== ENCOUNTER → 2025-06-18 18:11 | Outpatient (BNV) | payer MEDICARE, MEDICAID, SELFPAY | PROVIDERS: Emergency Provider Emergency Medicine; PCP Nurse Practitioner Family; Visit Provider Radiology Diagnostic Radiology | DX: J18.9 Pneumonia, unspecified organism (principal); R91.8 Other nonspecific abnormal finding of lung field; R60.0 Localized edema; E04.9 Nontoxic goiter, unspecified; L97.329 Non-pressure chronic ulcer of left ankle with unspecified severity; M19.072 Primary osteoarthritis, left ankle and foot | CPT/HCPCS: 70491; 71275; 73600 ==